=== PATIENT | male | born 1960 | race Caucasian/White ===

== ENCOUNTER 2021-06-27 11:36 | Emergency (ER) | payer BC, SELFPAY ==
[2021-06-27 11:37] VITALS: BP 169/92; PULSE 88; RESP 18; TEMP 36.6; O2SAT 98; BMI 32.5
[2021-06-27 11:52] LABS: Microscopic, Urine URINE MICROSCOPIC (MICROSCOPIC)
[2021-06-27 11:55] LABS: Appearance,Urine CLEAR (Clear); Bilirubin,Urine Negative (Negative); Blood, Urine TRACE-I (Negative); Color,Urine YELLOW (Yellow); Glucose,Urine (UA) Negative (Negative); Ketones,Urine Negative (Negative); Leukocyte Esterase,Urine Negative (Negative); Nitrate,Urine Negative (Negative); Protein,Urine 1+ (Negative); Specific Gravity, Urine 1.015 (1.005-1.030); Urobilinogen,Urine 0.2 EU/dl (0.2)
[2021-06-27 12:02] LABS: Basophils # 0.1 K/mm3 (0-0.2); Basophils % 1.7 % (0.1-2.0); Eosinophils # 0.1 K/mm3 (0.0-0.4); Eosinophils % 1.6 % (0.1-12.0); Hematocrit 48.3 % (42.0-52.0); Hemoglobin 15.5 g/dL (14.1-18.0); Lymphocytes # 1.7 K/mm3 (0.7-4.5); Lymphocytes % 32.3 % (10-50); Mean Corpuscular HGB Conc 32.2 g/dL (31.8-35.4); Mean Corpuscular Hemoglobin 31.2 pg (27.0-31.2); Mean Corpuscular Volume 96.9 fl (80-94); Mean Platelet Volume 8.5 fl (7.4-10.4); Monocytes # 0.3 K/mm3 (0.1-1.0); Monocytes % 4.9 % (1.7-9.3); Neutrophils # 3.2 K/mm3 (1.8-7.8); Neutrophils % 59.5 % (37.0-80.0); Platelet Count 229 K/mm3 (142-424); Red Blood Count 4.98 M/mm3 (4.60-6.20); Red Cell Distribution Width 14.1 % (11.5-17.5); White Blood Count 5.4 K/mm3 (4.8-10.8)
[2021-06-27 12:13] LABS: Bacteria,Urine Trace /lpf; RBC,Urine Occasional #/hpf (0-3); Squamous Epithelial Cell,Urine Occasional #/hpf (0-5)
[2021-06-27 12:13] LABS: Chloride 102 mmol/L (98-107); Potassium 4.1 mmoL/L (3.5-5.1); Sodium 136 mmol/L (136-145)
[2021-06-27 12:16] LABS: Alanine Aminotransferase 59 U/L (12-78); Albumin Level 4.6 g/dl (3.5-5.0); Albumin/Globulin Ratio 1.2 (1.1-1.8); Alkaline Phosphatase 78 U/L (38-126); Anion Gap 9.1 mEq/L (5-15); Aspartate Amino Transferase 61 U/L (17-59); Bilirubin,Total 0.5 mg/dl (0.2-1.3); Blood Urea Nitrogen 11 mg/dl (9-20); Carbon Dioxide 29 mmol/L (22.0-30.0); Creatinine Clearance Estimated 140 mL/min (50-200); Estimated Glomerular Filt Rate 99 ml/min (>60); GFR (African American) 120 ML/MIN (>60); Globulin 3.7 g/dL (1.3-3.2); Total Protein,Serum 8.3 g/dl (6.3-8.2)
[2021-06-27 12:17] LABS: Calcium 8.7 mg/dl (8.4-10.2); Glucose 148 mg/dl (74-100)
--- NOTE | 2021-06-27 13:12 | CT_ITS ---
FINAL REPORT CLINICAL HISTORY: R/O STONE left flank pain COMPARISON: March 27, 2016 FINDINGS: Axial CT images of the abdomen and pelvis were obtained without intravenous contrast. Coronal reformatted images were also obtained.This study was performed with techniques to keep radiation doses as low as reasonably achievable (ALARA). Individualized dose reduction techniques using automated exposure control or adjustment of mA and/or kV according to the patient's size were employed. Abdomen: The lung bases are clear. There is a 12 mm stone in the lower pole of the left kidney. There is moderate left hydronephrosis with a 16 mm stone in the UPJ. On the prior exam a smaller UPJ stone was present. There is a mass in the upper pole of the right kidney measuring 6 mm and was previously measured 4.5 cm. This cannot be accurately characterized without contrast but likely represents a cyst. The gallbladder surgically absent. The liver, spleen and pancreas have an unremarkable, unenhanced appearance. No adenopathy is seen. No inflammatory process is identified. There are moderate vascular calcifications. Pelvis: The appendix is not seen, consistent with patient history of appendectomy. Images of the pelvis reveal no evidence of ureteral dilation or ureteral stone.No mass or abnormal fluid collection is identified. There is mild urinary bladder wall thickening which is likely inflammatory. IMPRESSION: 12 mm stone in the lower pole of the left kidney. Moderate left hydronephrosis with a 16 mm stone in the UPJ. Right renal mass as described, cannot be accurately characterized but likely represents a cyst. Reviewed, Interpreted and Dictated by Amari Dietz III, MD Transcribed by Sunita Rodrigues Authenticated by Amari Dietz III, MD on 06/27/2021 02:28:47 PM [facility]
--- NOTE | 2021-06-27 13:24 | HMH.EDGENADL ---
ED Disposition Clinical Impression: Urolithiasis, UTI (urinary tract infection) Disposition: Home, Self-Care Condition on Discharge: Good Instructions: Kidney Stones -- Adult, DI for Acute Abdominal Pain Additional Instructions: Please follow up with primary care physician in 2-3 days for further management. You will also see urology at [facility] tomorrow to undergo lithotrypsty. Please take toradol and flomax for pain and comfort. 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) Pain Per Pt Transmission [facility]: [facility] Tamsulosin HCl [Flomax 0.4mg capsule] 0.4 mg PO HS #30 cap Transmission Status: [facility] Cefdinir [Omnicef 300mg Capsule] 300 mg PO BID #20 cap Transmission Status: [facility] Referrals: James Mancini [Primary Care Provider] - - Critical Care Critical Care Time: No Attestation: On 06/27/21, the high probability of a clinically significant, sudden or life threatening deterioration of the following system(s) required my full and direct attention, intervention and personal management. The time I documented below is in addition to time spent performing reported procedures but includes the following listed in this critical care notation. Medical Decision Making - Medical Records Medical records reviewed: Yes: I reviewed the patient's medical records. - Charan Inquiry Pt receiving controlled substance: No Vital Signs: 06/27/21 11:37 06/27/21 17:02 Temperature 98 F 98 F Temperature Source Oral Oral Pulse Rate 78 Pulse Rate [Radial] 88 Respiratory Rate 18 18 Blood Pressure 126/86 Blood Pressure [Right Arm] 169/92 H Blood Pressure Mean [Right Arm] 117 Blood Pressure Position Sitting Blood Pressure Position [Right Arm] Sitting 02 Sat by Pulse Oximetry 98 Oxygen Delivery Method Room Air Room Air - Lab Data Lab results reviewed: Yes: I reviewed the patient's lab results. Lab Results 06/27/21 11:44: Urine Color Yellow, Urine Appearance Clear, Urine pH 6.0, Ur Specific [place] 1.015, Urine Protein 1+, Urine Glucose (UA) Negative, Urine Ketones Negative, Urine Blood Trace-i, Urine Nitrate Negative, Urine Bilirubin Negative, Urine Urobilinogen 0.2, Ur Leukocyte Esterase Negative, Urine RBC Occasional, Urine WBC 3-5, Ur Squamous Epith Cells Occasional, Urine Bacteria Trace 06/27/21 11:45: WBC 5.4, RBC 4.98, Hgb 15.5, Hct 48.3, MCV 96.9 H, MCH 31.2, MCHC 32.2, RDW 14.1, Plt Count 229, MPV 8.5, Neut % (Auto) 59.5, Lymph % (Auto) 32.3, [place] % (Auto) 4.9, Eos % (Auto) 1.6, Baso % (Auto) 1.7, Neut # (Auto) 3.2, Lymph # (Auto) 1.7, [place] # (Auto) 0.3, Eos # (Auto) 0.1, Baso # (Auto) 0.1 06/27/21 11:45: Sodium 136, Potassium 4.1, Chloride 102, Carbon Dioxide 29, Anion Gap 9.1, BUN 11, Creatinine 0.80, Estimated Creat Clear 140, Estimated GFR 99, Est GFR ( Amer) 120, Glucose 148 H, Calcium 8.7, Total Bilirubin 0.5, AST 61 H, ALT 59, Alkaline Phosphatase 78, Total Protein 8.3 H, Albumin 4.6, Globulin 3.7 H, Albumin/Globulin Ratio 1.2 06/27/21 15:35: SARS-CoV-2 (PCR) Detected A, Influenza A Untype (PCR) Not detected, Influenza Type B (PCR) Not detected Result diagrams: 06/27/21 11:45 06/27/21 11:45 Orders (Tests/Meds): ED MEDICATIONS Discontinued Medications Generic Name Dose Route Start Last Admin Trade Name Freq PRN Reason Stop Dose Admin Hydromorphone HCl 1 mg 06/27/21 19:01 06/27/21 11:45 Hydromorphone 2mg/Ml Syringe IV 06/27/21 19:02 1 mg ONCE ONE Administration Hydromorphone HCl 0.5 mg 06/27/21 19:01 06/27/21 14:58 Hydromorphone 2mg/Ml Syringe IV 06/27/21 19:02 0.5 mg ONCE ONE Administration Hydromorphone HCl 0.5 mg 06/27/21 19:01 06/27/21 15:35 Hydromorphone 2mg/Ml Syringe IV 06/27/21 19:02 0.5 mg ONCE ONE Administration Lactated Ringer's 1,000 mls @ 999 mls/hr 06/27/21 12
--- NOTE | 2021-06-27 13:33 | PC.NURSE ---
Patient back from CT with lab support service tech
--- NOTE | 2021-06-27 14:44 | PC.NURSE ---
Consult to Dr. Leger
--- NOTE | 2021-06-27 15:19 | PC.NURSE ---
DR KAUR HERE TO SEE PT
--- NOTE | 2021-06-27 15:32 | HMH.CONS ---
*Admission Date: 06/27/21 *Reason for consult:: Left nephrolithiasis *History of present illness: Patient is a 61-year-old white male with a history of nephrolithiasis. He began having left renal colic last evening and presented to the emergency room today. CT scan shows a 16 mm stone at the left UPJ and a 12 mm stone in the left lower pole. He has had some associated nausea but no vomiting. He denies any fevers or chills. His white count is normal and his creatinine is normal. CT scan was reviewed. He has had previous lithotripsy and stents. [facility] History Medical History: Reports:: Hypertension, Kidney Stones Denies:: Diabetes Mellitus Type 1, Diabetes Mellitus Type 2 *Have you ever received a pneumonia vaccine?: Yes *Have you received a flu vaccine this season?: Yes Other Medical History: Reports: Sinus Problems Other Surgeries: Yes: Appendectomy, Cholecystectomy, Hernia Repair, Other - *Social History Smoking Status: Former smoker Tobacco Type: smokeless tobacco Alcohol Intake: never Alcohol Intake Frequency:: a few times a month *Occupational Status:: unemployed Housing: house *Travel in the last 8 weeks: None Family Hx:: No significant family history Review of Systems - Review of Systems Review of systems:: pertinent systems reviewed and negative unless documented below - *Genitourinary Denies difficulty urinating, Denies blood in urine, Denies urinary frequency, Denies urinary urgency - *Musculoskeletal Reports back pain Meds Home Medications Medication Instructions Recorded Confirmed Type bisoprolol 5 1 tab PO DAILY tab 10/23/17 03/10/21 History mg-hydrochlorothiazide 6.25 mg tablet ejituipyurif-Lm-yvgq-minerals 1 tab PO DAILY 10/23/17 03/10/21 History omega 8-hib-izh-fish oil 1,000 mg 1 cap PO DAILY 10/23/17 03/10/21 History (120 mg-180 mg) capsule ranitidine HCl 150 mg capsule 75 mg PO QHS cap 10/23/17 03/10/21 History Ketorolac Tromethamine [Toradol 10 mg PO Q4HP PRN #10 tab MDD 06/27/21 Rx 10mg tablet] 40mg/day Tamsulosin HCl [Flomax 0.4mg 0.4 mg PO HS #30 cap 06/27/21 Rx capsule] Allergies Allergy/AdvReac Type Severity Reaction Status Date / Time oxycodone [OXYCODONE] Allergy Intermediate HEADACHE Verified 03/10/21 12:49 acetaminophen [From Lortab] Allergy Mild Verified 03/10/21 12:49 hydrocodone [From Lortab] Allergy Mild Verified 03/10/21 12:49 Exam Vital signs and Labs for Last 24 Hours: Temp Pulse Resp BP Pulse Ox 98 F 88 18 169/92 H 98 06/27/21 11:37 06/27/21 11:37 06/27/21 11:37 06/27/21 11:37 06/27/21 11:37 Laboratory Results - last 24 hr 06/27/21 11:44: Urine Color Yellow, Urine Appearance Clear, Urine pH 6.0, Ur Specific [place] 1.015, Urine Protein 1+, Urine Glucose (UA) Negative, Urine Ketones Negative, Urine Blood Trace-i, Urine Nitrate Negative, Urine Bilirubin Negative, Urine Urobilinogen 0.2, Ur Leukocyte Esterase Negative, Urine RBC Occasional, Urine WBC 3-5, Ur Squamous Epith Cells Occasional, Urine Bacteria Trace 06/27/21 11:45: WBC 5.4, RBC 4.98, Hgb 15.5, Hct 48.3, MCV 96.9 H, MCH 31.2, MCHC 32.2, RDW 14.1, Plt Count 229, MPV 8.5, Neut % (Auto) 59.5, Lymph % (Auto) 32.3, [place] % (Auto) 4.9, Eos % (Auto) 1.6, Baso % (Auto) 1.7, Neut # (Auto) 3.2, Lymph # (Auto) 1.7, [place] # (Auto) 0.3, Eos # (Auto) 0.1, Baso # (Auto) 0.1 06/27/21 11:45: Sodium 136, Potassium 4.1, Chloride 102, Carbon Dioxide 29, Anion Gap 9.1, BUN 11, Creatinine 0.80, Estimated Creat Clear 140, Estimated GFR 99, Est GFR ( Amer) 120, Glucose 148 H, Calcium 8.7, Total Bilirubin 0.5, AST 61 H, ALT 59, Alkaline Phosphatase 78, Total Protein 8.3 H, Albumin 4.6, Globulin 3.7 H, Albumin/Globulin Ratio 1.2 I & O for Last 24 hours: Intake & Output 06/24/21 06/25/21 06/26/21 06/27/21 23:59 23:59 23:59 23:59 Weight 99.79 kg - Constitutional no acute distress - *Routine HEENT Exam Head: Present: normocephalic Eye: Present: EOMI, PERRL ENT: Pres
[2021-06-27 15:42] LABS: Influenza A, PCR Not Detected (NotDetected); Influenza B, PCR Not Detected (NotDetected)
[2021-06-27 16:12] LABS: Coronavirus 19, PCR Detected (NotDetected)
[2021-06-27 17:02] VITALS: BP 126/86; PULSE 78; RESP 18; TEMP 36.6; O2SAT 98
== END 2021-06-27 17:04 | disposition home or self-care (01) ==
PROVIDERS: Emergency Provider Student in an Organized Health Care Education/Training Program; PCP Family Medicine
DX: N20.9 Urinary calculus, unspecified (principal)
CPT/HCPCS: 74176; 80053; 81001; 85025; 96365; 96375; 96376; 99283; C9803; J2405; U0003; U0005

== ENCOUNTER 2021-06-28 08:40 | Day surgery (SDC) | payer BC, SELFPAY ==
[2021-06-28] VITALS (9 sets, daily range): BP systolic 147–175; BP diastolic 82–95; PULSE 79–94; RESP 14–18; TEMP 36.1–36.2; O2SAT 93–98; BMI 32.5
--- NOTE | 2021-06-28 14:18 | P.PN_ITS ---
[facility] Anesthesia Checklist - Patient Identification Patient Identification: Arm Band - Structural Data Admitted From: Home Planned Operative Procedure/s: eswl Consent for Planned Operative Procedure(s) Verified: Yes - NPO Status Verified Time NPO: 00:00 - Additional verifications Anesthesia Reactions: No Hx Blood Transfusions: No Blood Transfusion Reaction: No - Airway Assessment C-Spine Mobility Assessed: Yes TMJ Mobility Assessed: Yes Dentition: Good Dentition - Neurological Assessment Level of Consciousness: Awake Hx Seizures: No Numbness or tingling in extremities: No - Anesthesia Plan Anesthesia Risk discussed: Yes Anesthesia Plan: Verified ASA Class: II Anesthesia Type: General [facility] History I have reviewed the patient's past medical history: Yes Medical History: Reports:: Hypertension, Kidney Stones Denies:: Cancer, Diabetes Mellitus Type 1, Diabetes Mellitus Type 2, MRSA, Seizures *Have you ever received a pneumonia vaccine?: No *Have you received a flu vaccine this season?: Yes Other Medical History: Reports: Sinus Problems. Denies: Blood Transfusion Reaction Anesthesia experience/problems:: None Other Surgeries: Yes: Appendectomy, Cholecystectomy, Hernia Repair, Other Amputation: No - *Social History Last grade of school completed: GED Smoking Status: Former smoker Tobacco Type: smokeless tobacco Alcohol Intake: never Alcohol Intake Frequency:: a few times a month Substance Use Type: denies use *Occupational Status:: retired Housing: house *Travel in the last 8 weeks: None Family Hx:: No significant family history
--- NOTE | 2021-06-28 15:34 | HMH.ANESI ---
[facility] Anesthesia Record Part I Intake, IV Amount: 600 Estimated blood loss (mL): 0 Urine output (mL): 0 Blood Pressure: 157/94 SaO2: 93 Pulse Rate: 79 Respiratory Rate: 14 Temperature: 97 F Patient is:: Drowsy, Oral/Nasal airway Stable to PACU at:: 15:33
--- NOTE | 2021-06-28 15:35 | HMH.OPNOTE ---
Date of procedure: 06/28/21 Pre-op Diagnosis:: Left UPJ stone, 16 mm Post-op Diagnosis:: Same Procedure performed:: Cystoscopy with left ureteral stone manipulation, left stent and left ESWL Surgeon:: Bird Leger MD PRODUCT CONTROL AND LOGISTICS ANALYST:: Jacob Mansfield Anesthesia: LMA Estimated blood loss (mL): 0 Clinical Note:: 61-year-old white male seen in the emergency room yesterday with left renal colic. CT scan shows a 16 mm stone at the left UPJ. Operative findings:: 16 mm stone at the left UPJ Operative note:: Patient taken to the operating room after informed consent was obtained. He was placed on the operating table in the supine position and general anesthesia administered. Preoperative antibiotics and sequential compression devices placed. He was then placed into the dorsal lithotomy position and prepped and draped in the standard surgical fashion. 22 Mongolian cystoscope passed into the urethra and into the bladder without difficulty. The bladder was examined in a systematic fashion and no abnormalities were noted. The ureteral orifices in their normal anatomic position. A 5 Mongolian ureteral catheter passed into the left ureteral orifice and under fluoroscopy was passed proximally. The stone was able to be manipulated back into the renal pelvis with a moderate amount of difficulty. A guidewire then passed through the ureteral catheter and the ureteral cath removed. A 6 x 26 Mongolian stent was then passed over the guidewire and the guidewire removed. A good curl was noted proximally and distally. The string was left on for later removal. The patient then placed in the supine position and F2 the lithotripter focused onto the leading edge of the stone and 3000 shockwaves delivered to the stone at a maximum KV of 8. Stone appeared to fragment well. Patient tolerated the procedure well there are no complications. Condition: stable Disposition: PACU Specimens:: None Complications:: None
[2021-06-29 08:11] VITALS: BP 156/82; PULSE 90; TEMP 36.1
--- NOTE | 2021-06-29 08:11 | P.PN_ITS ---
[facility] Anesthesia Record Part II Discharge Time: 16:50 Destination: Surgical Day Care (OP Surgery) PACU nurse assessment reviewed?: Yes Patient Condition:: Good Anesthesia Complications:: None Swallowing reflex intact?: Yes Cyanosis?: No Blood Pressure: 156/82 Pulse Rate: 90 Temperature: 97 F Mental Status: Alert & Oriented Pain level:: 0 Nausea and/or vomitting:: None Intake, IV Amount: 0
== END 2021-06-28 16:50 | disposition home or self-care (01) ==
PROVIDERS: PCP Family Medicine; Visit Provider Urology
PROC: (CPT 52330; principal; 2021-06-28 14:45)
DX: N20.1 Calculus of ureter (principal); I10 Essential (primary) hypertension; Z88.6 Allergy status to analgesic agent
CPT/HCPCS: 52330; 50590; 96374; C2617

== ENCOUNTER 2021-06-29 12:44 | Emergency (ER) | payer BC, SELFPAY ==
[2021-06-29 12:46] VITALS: BP 183/114; PULSE 94; RESP 20; TEMP 36.8; O2SAT 98; BMI 32.5
[2021-06-29 15:07] LABS: Microscopic, Urine URINE MICROSCOPIC (MICROSCOPIC)
--- NOTE | 2021-06-29 15:20 | PC.NURSE ---
Notified Rad of CT
--- NOTE | 2021-06-29 15:29 | CT_ITS ---
FINAL REPORT CLINICAL HISTORY: stone protocol COMPARISON: June 27, 2021 FINDINGS: Axial CT images of the abdomen and pelvis were obtained without intravenous contrast. Coronal reformatted images were also obtained.This study was performed with techniques to keep radiation doses as low as reasonably achievable (ALARA). Individualized dose reduction techniques using automated exposure control or adjustment of mA and/or kV according to the patient's size were employed. Abdomen: There are several less than 5 mm nodules in the left lung base there are nonspecific. Postoperative changes are seen in proximal stomach. There has been cholecystectomy. There has been interval placement of a left ureteral stent. The stone at the left renal pelvis on the prior exam is not identified. There are multiple stones in left renal collecting system most numerous in the lower pole. Mild left hydronephrosis is partially improved. There is of left periureteric stranding that may represent edema/inflammation. There is a probable cyst in the posterior right kidney. The liver, spleen and pancreas have an unremarkable, unenhanced appearance. Vascular calcifications are present. There are scattered colonic diverticula. Pelvis: Images of the pelvis reveal no evidence of ureteral dilation or ureteral stone.No mass or abnormal fluid collection is identified. IMPRESSION: Interval placement of a left ureteral stent with non-visualization of the previous left renal pelvic stone but multiple stone fragments are present in the left renal collecting system. Partially improved left hydronephrosis with left periureteric stranding that may represent edema/inflammation. Reviewed, Interpreted and Dictated by Amari Dietz III, MD Transcribed by Familia Erickson Authenticated by Amari Dietz III, MD on 06/29/2021 04:23:56 PM [facility]
[2021-06-29 15:46] LABS: Basophils % 0.5 % (0.1-2.0); Eosinophils # 0.1 K/mm3 (0.0-0.4); Eosinophils % 1.1 % (0.1-12.0); Hematocrit 45.3 % (42.0-52.0); Hemoglobin 15.1 g/dL (14.1-18.0); Lymphocytes # 1.5 K/mm3 (0.7-4.5); Mean Corpuscular HGB Conc 33.3 g/dL (31.8-35.4); Mean Corpuscular Hemoglobin 31.7 pg (27.0-31.2); Mean Corpuscular Volume 95.2 fl (80-94); Mean Platelet Volume 8.1 fl (7.4-10.4); Monocytes # 0.3 K/mm3 (0.1-1.0); Monocytes % 5.4 % (1.7-9.3); Neutrophils # 3.4 K/mm3 (1.8-7.8); Neutrophils % 64.9 % (37.0-80.0); Platelet Count 221 K/mm3 (142-424); Red Blood Count 4.76 M/mm3 (4.60-6.20); Red Cell Distribution Width 13.9 % (11.5-17.5); White Blood Count 5.2 K/mm3 (4.8-10.8)
--- NOTE | 2021-06-29 15:46 | PC.NURSE ---
pt returned from CT at this time
[2021-06-29 15:57] LABS: Appearance,Urine CLEAR (Clear); Bilirubin,Urine Negative (Negative); Blood, Urine 3+ (Negative); Color,Urine YELLOW (Yellow); Glucose,Urine (UA) Negative (Negative); Ketones,Urine Negative (Negative); Leukocyte Esterase,Urine 2+ (Negative); Nitrate,Urine POSITIVE (Negative); PH,Urine 7.5 (5.0-8.5); Protein,Urine 2+ (Negative); Specific Gravity, Urine 1.025 (1.005-1.030)
[2021-06-29 15:57] LABS: Anion Gap 10.1 mEq/L (5-15); Blood Urea Nitrogen 11 mg/dl (9-20); Calcium 9.5 mg/dl (8.4-10.2); Carbon Dioxide 29 mmol/L (22.0-30.0); Chloride 107 mmol/L (98-107); Creatinine Clearance Estimated 160 mL/min (50-200); Estimated Glomerular Filt Rate 115 ml/min (>60); GFR (African American) 140 ML/MIN (>60); Glucose 91 mg/dl (74-100); Potassium 4.1 mmoL/L (3.5-5.1); Sodium 142 mmol/L (136-145)
[2021-06-29 16:27] LABS: RBC,Urine TNTC #/hpf (0-3); Squamous Epithelial Cell,Urine Occasional #/hpf (0-5)
[2021-06-29 16:28] LABS: Bacteria,Urine 2+ /lpf
--- NOTE | 2021-06-29 18:15 | PC.NURSE ---
DR NATASHA BELTRAN
--- NOTE | 2021-06-29 18:36 | PC.NURSE ---
DR KAUR PAGED AGAIN
--- NOTE | 2021-06-29 18:40 | PC.NURSE ---
speaking with Dr Leger at this time.
[2021-06-29 19:08] VITALS: BP 183/89; PULSE 87; RESP 18; TEMP 36.6; O2SAT 97
--- NOTE | 2021-06-29 19:14 | HMH.EDGENADL ---
ED Disposition Clinical Impression: Dysuria Disposition: Home, Self-Care Condition on Discharge: Good Instructions: DI for Urinary Tract Infection (UTI), DI for Urinary Tract Infection in Children Additional Instructions: Follow-up with Dr. Leger as scheduled and please take ibuprofen and Tylenol as instructed for pain control. Please return to the emergency department with any new or worsening symptoms including fever, worsening pain or any other new or concerning symptoms. Referrals: James Mancini [Primary Care Provider] - - Critical Care Critical Care Time: No Attestation: On 06/29/21, the high probability of a clinically significant, sudden or life threatening deterioration of the following system(s) required my full and direct attention, intervention and personal management. The time I documented below is in addition to time spent performing reported procedures but includes the following listed in this critical care notation. Medical Decision Making - Charan Inquiry Pt receiving controlled substance: No Vital Signs: 06/29/21 12:46 Temperature 98.3 F Temperature Source Oral Pulse Rate [Right Radial] 94 H Respiratory Rate 20 Blood Pressure [Right Arm] 183/114 H Blood Pressure Mean [Right Arm] 137 Blood Pressure Source [Right Arm] Automatic Cuff Blood Pressure Position [Right Arm] Sitting 02 Sat by Pulse Oximetry 98 Oxygen Delivery Method Room Air - Lab Data Lab Results 06/29/21 14:41: Urine Color Yellow, Urine Appearance Clear, Urine pH 7.5, Ur Specific [place] 1.025, Urine Protein 2+, Urine Glucose (UA) Negative, Urine Ketones Negative, Urine Blood 3+, Urine Nitrate Positive, Urine Bilirubin Negative, Urine Urobilinogen 1.0, Ur Leukocyte Esterase 2+ A, Urine RBC Tntc, Urine WBC 5-10, Ur Squamous Epith Cells Occasional, Urine Bacteria 2+ 06/29/21 15:30: WBC 5.2, RBC 4.76, Hgb 15.1, Hct 45.3, MCV 95.2 H, MCH 31.7 H, MCHC 33.3, RDW 13.9, Plt Count 221, MPV 8.1, Neut % (Auto) 64.9, Lymph % (Auto) 28.0, [place] % (Auto) 5.4, Eos % (Auto) 1.1, Baso % (Auto) 0.5, Neut # (Auto) 3.4, Lymph # (Auto) 1.5, [place] # (Auto) 0.3, Eos # (Auto) 0.1, Baso # (Auto) 0.0 06/29/21 15:30: Sodium 142, Potassium 4.1, Chloride 107, Carbon Dioxide 29, Anion Gap 10.1, BUN 11, Creatinine 0.70, Estimated Creat Clear 160, Estimated GFR 115, Est GFR ( Amer) 140, Glucose 91, Calcium 9.5 Result diagrams: 06/29/21 15:30 06/29/21 15:30 Orders (Tests/Meds): ORDERS Category Date Time Status Urine Culture Stat Micro 06/29/21 14:41 Received Medical Decision Narrative: 61-year-old male with history of lithotripsy and ureteral stent placed yesterday presents emergency department with abdominal discomfort, occasional small urinary blood clot passage, dysuria with urinalysis today showing bacteriuria with nitrate positivity with patient taking Azo likely responsible for this, with positive leukocyte esterase. metabolic panel and CBC are nonactionable, Dr. Leger with urology was called and stated that patient's symptoms and urinalysis results are consistent with expected postoperative pain and discomfort and recommend patient follow-up in the clinic. CT abdomen pelvis showed left interval placement of ureteral stent without comment of stent not in place. patient was hemodynamically stable and did not have a sheet metal mechanic abdomen and patient was able to be discharged with return precautions. General Adult HPI - General Chief complaint: Urogenital-Male Stated complaint: covid pos 06/20, pressure and difficulty urinating Time Seen by Provider: 06/29/21 14:41 Mode of Arrival: Ambulatory Limitations: No Limitations Description of Symptoms (Recalled from ER Triage Doc. by RN): Pt states that he was seen in the ED on Sunday and dx with a 16mm kidney stone. Advises that he had lithotripsy performed yesterday along with a stent placed. Denies difficulty urinating, but states that he has a continuous urge to urinate and pressure in his lower
[2021-06-29 19:19] VITALS: BP 187/83; PULSE 83; RESP 18; TEMP 36.8; O2SAT 99
== END 2021-06-29 19:22 | disposition home or self-care (01) ==
LOC: ER 13:08
PROVIDERS: Emergency Provider Student in an Organized Health Care Education/Training Program; PCP Family Medicine
DX: R30.0 Dysuria (principal); Z87.442 Personal history of urinary calculi; I10 Essential (primary) hypertension; Z87.891 Personal history of nicotine dependence
CPT/HCPCS: 36415; 74176; 80048; 81001; 85025; 87086; 99283

== ENCOUNTER → 2021-07-18 13:41 | Outpatient (CLI) | payer BC, SELFPAY ==
--- NOTE | 2021-07-18 13:47 | XR_ITS ---
FINAL REPORT CLINICAL HISTORY: kidney stone with carter placed COMPARISON: July 12, 2021 FINDINGS: SINGLE VIEW ABDOMEN A single view of the abdomen was obtained. There is a nonobstructive bowel gas pattern. There are no abnormally dilated loops of small bowel. There is a left ureteral stent. A stone or stones are seen the lower pole of the left kidney. There is a 4 mm radiodensity the left medial abdomen felt to represent anterior abdominal wall foreign body as seen as seen on CT from July 12, 2021. A questionable small stone is seen adjacent to the stent in the left pelvis. A phlebolith is noted in the left pelvis. There are postoperative changes in the right upper quadrant. IMPRESSION: Left ureteral stent with lower pole left renal stones questionable small stone adjacent to the stent in the left pelvis. Reviewed, Interpreted and Dictated by Amari Dietz III, MD Transcribed by Tabby Patino Authenticated by Amari Dietz III, MD on 07/18/2021 03:51:02 PM [facility]
== END ==
PROVIDERS: PCP Family Medicine; Visit Provider Urology
DX: N20.0 Calculus of kidney (principal)
CPT/HCPCS: 74018

== ENCOUNTER → 2021-08-10 09:15 | Outpatient (CLI) | payer BC, SELFPAY | PROVIDERS: PCP Family Medicine; Visit Provider Urology | DX: Z01.812 Encounter for preprocedural laboratory examination (principal); Z11.52 Encounter for screening for COVID-19; N20.0 Calculus of kidney | CPT/HCPCS: C9803; U0003; U0005 ==

== ENCOUNTER → 2021-08-29 10:53 | Outpatient (CLI) | payer BC, SELFPAY | PROVIDERS: PCP Family Medicine; Visit Provider Nurse Practitioner Family | DX: Z02.4 Encounter for examination for driving license (principal) ==

== ENCOUNTER 2022-04-09 09:19 | Emergency (ER) | payer BC, SELFPAY ==
[2022-04-09 10:55] VITALS: BP 149/84; PULSE 80; RESP 18; TEMP 37; O2SAT 99; BMI 34.0
--- NOTE | 2022-04-09 11:12 | EXP.UTC ---
Discharge Plan Disposition Patient Disposition: Home, Self-Care Condition: Good Prescriptions Prescriptions: New prednisone [prednisone] 20 mg tablet 20 mg PO BID 5 Days Qty: 10 0RF benzonatate 100 mg capsule 100 mg PO TID PRN (Reason: cough) Qty: 30 0RF amoxicillin-pot clavulanate 875-125 mg Tablet 1 tab PO Q12H Qty: 20 0RF fluticasone propionate [Flonase Allergy Relief] 50 mcg/actuation spray,suspension 1 spray intranasal DAILY Qty: 16 0RF Rx Instructions: administer into each nostril No Action omega 4-zwt-nox-fish oil [Fish Oil] 1,000 mg (120 mg-180 mg) capsule 1 cap PO DAILY ranitidine HCl 150 mg capsule 75 mg PO QHS hwvjpxyikzab-Xi-gfwu-minerals tablet 1 tab PO DAILY hydromorphone [Dilaudid] 2 mg tablet 2 mg PO Q4-6H PRN (Reason: pain) Qty: 7 0RF ketorolac 10 MG tablet 10 mg PO Q4HP MDD 40mg/day PRN (Reason: (Uniform Room Attendant Use Only) Pain Per Pt) Qty: 10 0RF Rx Instructions: Therapy initiated with IV/IM dose tamsulosin 0.4 MG capsule 0.4 mg PO HS cefdinir 300 MG capsule 300 mg PO BID Referrals Follow up/Referrals: James Mancini [Primary Care Provider] - See instructions Activity Restrictions/Add. Instructions Additional Instructions/Restrictions: *Monitor Temp, Over the counter Motrin or Tylenol as directed/as needed Tylenol every 4 hours and Motrin every 6 hours (as long as your family doctor has told you that you can take it) for fever or pain. and straight to ER if unable to lower temp less than 101.0 after medication given *Warm salt water gargles may help to soothe the throat *Throat Lozenges? *Warm fluids like tea with honey may help to soothe the throat??and help with nasal congestion? *Sleep elevated *Humidifier/Vaporizer *Flonase 2 sprays in each nostril daily but be aware that it may take 2-3 days before you notice improvement Follow up IMMEDIATELY for new or worsening symptoms or no Noticeable improvement over the next 48-72 hours. 911 for difficulty breathing or swallowing Clinical Impressions Clinical Impression: Otitis media, Sinusitis Stand Alone Forms Stand Alone Forms: Work/School Release Instructions Patient Instructions: DI for Sinusitis, Sinusitis, Middle Ear Infection, Amoxicillin and Clavulanic Acid Discharge ED Provider: Martha Dumont [facility] HPI General Stated complaint: Lt ear pain, cough, congestion, sinus drainage Time Seen by Provider: 04/09/22 11:12 History of Present Illness Provider Complaint: Patient states that he has been having pain in his left ear, sinus pain and pressure and feels like it is trying to move into his chest States that last night he had pain in his sinuses and felt like a pop in his left ear and has been having pain in the ear ever since State that pressure behind his eyes and cough States his ear was hurting worse so he came in to get it checked out Related Data Home Medications Medication Instructions Recorded Confirmed dpuxfruaujfz-Jf-rpft-minerals 1 tab PO DAILY Supplement 10/23/17 07/18/21 omega 7-sve-oln-fish oil 1,000 mg 1 cap PO DAILY Supplement 10/23/17 07/18/21 (120 mg-180 mg) capsule (Fish Oil) ranitidine HCl 150 mg capsule 75 mg PO QHS antacid 10/23/17 07/18/21 cefdinir 300 mg capsule 300 mg PO BID antibiotic 06/28/21 07/18/21 tamsulosin 0.4 mg capsule 0.4 mg PO HS prostate 06/28/21 07/18/21 Previous Rx's Medication Instructions Recorded ketorolac 10 mg tablet 10 mg PO Q4HP PRN (Uniform Room Attendant Use Only) 06/27/21 Pain Per Pt #10 tabs hydromorphone 2 mg tablet 2 mg PO Q4-6H PRN pain #7 tabs 07/18/21 (Dilaudid) amoxicillin 875 mg-potassium 1 tab PO Q12H #20 tabs 04/09/22 clavulanate 125 mg tablet benzonatate 100 mg capsule 100 mg PO TID PRN cough #30 caps 04/09/22 fluticasone propionate 50 1 spray intranasal DAILY #16 grams 04/09/22 mcg/actuation nasal spray,suspension (Flonase Allergy Relief) prednisone 20 mg tablet 20 mg PO BID 5
[2022-04-09 11:25] VITALS: BP 149/84; PULSE 80; RESP 18; TEMP 37; O2SAT 99
== END 2022-04-09 11:34 | disposition home or self-care (01) ==
PROVIDERS: Emergency Provider Nurse Practitioner; PCP Family Medicine
DX: H92.02 Otalgia, left ear (principal); R05.9 Cough, unspecified; R09.89 Other specified symptoms and signs involving the circulatory and respiratory systems; R51.9 Headache, unspecified; I10 Essential (primary) hypertension; Z79.1 Long term (current) use of non-steroidal anti-inflammatories (NSAID); Z79.51 Long term (current) use of inhaled steroids; Z79.52 Long term (current) use of systemic steroids; Z79.899 Other long term (current) drug therapy; Z88.5 Allergy status to narcotic agent; Z88.6 Allergy status to analgesic agent; Z88.8 Allergy status to other drugs, medicaments and biological substances; Z87.442 Personal history of urinary calculi; Z87.891 Personal history of nicotine dependence
CPT/HCPCS: 99213; G0463

== ENCOUNTER 2023-11-07 08:25 | Emergency (ER) | payer BC, SELFPAY ==
[2023-11-07 08:26] VITALS: BP 154/81; PULSE 77; RESP 18; TEMP 36.8; O2SAT 97; BMI 35.4
--- NOTE | 2023-11-07 08:39 | PC.NURSE ---
DR CERVANTES AT BEDSIDE
--- NOTE | 2023-11-07 08:39 | PC.NURSE ---
Dr. Byers at [facility] for pt eval
--- NOTE | 2023-11-07 08:49 | CT_ITS ---
FINAL REPORT TECHNIQUE: Axial images through the abdomen and pelvis were performed without contrast. This study was performed with techniques to keep radiation doses as low as reasonably achievable, (ALARA). Individualized dose reduction techniques using automated exposure control or adjustment of mA and/or kV according to the patient's size were employed. CLINICAL HISTORY: LLQ abd pain COMPARISON: 06/29/2021 FINDINGS: Abdomen: Lung bases are clear. There is fatty infiltration of the liver. The spleen, pancreas and adrenal glands have a normal CT appearance in their limited unenhanced state. Patient is status post cholecystectomy. Surgical changes seen along the proximal stomach. There are nonobstructing left renal stones, improved since prior. Largest stone is in the lower pole of the left kidney measures 12 mm. There is upper pole right renal cyst. No ureteral stones are present. Pelvis: The appendix is not identified but there are no secondary findings to suggest appendicitis. There is stranding surrounding the proximal sigmoid colon suspicious for mild diverticulitis. There is no evidence of abscess or obstruction. There is mild prostate enlargement. No distal ureteral stones are seen. Bladder is unremarkable. No fluid collection or adenopathy is seen. IMPRESSION: Stranding surrounding proximal sigmoid colon suspicious for mild diverticulitis. Left renal stones, improved since previous. Reviewed, Interpreted and Dictated by Anam Levine MD Transcribed by April Alcazar Authenticated and [facility]
--- NOTE | 2023-11-07 08:50 | HMH.EDGENADL ---
Discharge Plan Disposition Patient Disposition: Home, Self-Care Prescriptions Prescriptions: New amoxicillin-pot clavulanate 875-125 mg tablet 1 tab PO BID 10 Days Qty: 20 0RF ondansetron 4 mg tablet,disintegrating 4 mg PO Q6H PRN (Reason: nausea and vomiting) 5 Days Qty: 20 0RF No Action omega 6-qnq-tho-fish oil [Fish Oil] 1,000 mg (120 mg-180 mg) capsule 1 cap PO DAILY pmrlydtmqvjf-Vg-trtc-minerals tablet 1 tab PO DAILY bisoprolol fumarate 5 mg tablet 5 mg PO DAILY Patient Comments: TAKE 1 TABLET BY MOUTH ONCE DAILY Referrals Follow up/Referrals: James Mancini MD [Primary Care Provider] - See instructions Activity Restrictions/Add. Instructions Additional Instructions/Restrictions: You were diagnosed today with uncomplicated diverticulitis without any evidence of abscess or perforation. You may follow-up with our general surgeon or your primary care doctor please return with any high fevers or sudden worsening of abdominal pain. Of note there was no evidence of any obstructing kidney stone in fact your kidney stone burden has improved since previous CT scans. Clinical Impressions Clinical Impression: Diverticulitis Instructions Patient Instructions: DI for Acute Abdominal Pain Discharge ED Provider: Gumaro Byers General Adult HPI General Chief complaint: Abdominal Pain Stated complaint: Pain L front abd, hist of kidney stone Time Seen by Provider: 11/07/23 08:37 Mode of Arrival: Ambulatory Source of Information: Patient Limitations: No Limitations Description of Symptoms (Recalled from ER Triage Doc. by RN): PT REPORT LEFT SIDED LOWER ABDOMINAL PAIN THAT RADIATES TO GROIN AND TESTICLES. REPORTS HX OF KIDNEY STONES. DENIES FEVER. STARTED YESTERDAY History of Present Illness HPI narrative: Patient is a 63-year-old male present today with left lower quadrant abdominal pain. States he has a history of numerous kidney stones and has been septic multiple times in the past. His most severe presentation in 2021 had 2 hospitalizations first at [facility] where he was septic and improved and then went home and got sicker went to [facility] ultimately was intubated on a ventilator for 2 days. He is follow-up with Dr. Lantigua at [facility]. States that his pain today is little bit atypical from what his kidney stones been like in the past usually with back pain today it is focally in the left lower quadrant. Has a history of diverticulitis but has not had any recurrence of this in a long time. No blood in the stools. He did have some chills last night but currently feels well. No nausea pain is mild. With his history of sepsis he stated that he got scared last night with the chills and wanted to come get checked out. Related Data Home Medications Medication Instructions Recorded Confirmed jkcevwxmwxge-Fm-igro-minerals 1 tab PO DAILY Supplement 10/23/17 11/07/23 omega 2-qfb-fwn-fish oil 1,000 mg 1 cap PO DAILY Supplement 10/23/17 11/07/23 (120 mg-180 mg) capsule (Fish Oil) bisoprolol fumarate 5 mg tablet 5 mg PO DAILY 04/02/23 11/07/23 Previous Rx's Medication Instructions Recorded amoxicillin 875 mg-potassium 1 tab PO BID 10 days #20 tabs 11/07/23 clavulanate 125 mg tablet ondansetron 4 mg disintegrating 4 mg PO Q6H PRN nausea and 11/07/23 tablet vomiting 5 days #20 tabs Allergies Allergy/AdvReac Type Severity Reaction Status Date / Time oxycodone [OXYCODONE] Allergy Intermediate HEADACHE Verified 04/02/23 10:52 acetaminophen [From Lortab] Allergy Mild Verified 04/02/23 10:52 hydrocodone [From Lortab] Allergy Mild Verified 04/02/23 10:52 PFSH PFSH Disclaimer: The information contained in this section may have been updated after the patient was seen, as this information can be updated by other users. Medical History (Updated 11/07/23 @ 10:30 by Gumaro Byers MD) Acute tonsillitis Ear itch Hx of nephrolithotomy with removal of calculi Kidney stone Hypertension Surgical History History of hernia repair History of cholecystectomy History of appendectomy Social History Smoking Status: Former smoker tobacco type: smokeless tobacco alcohol intake: current alcohol intake frequency: a few times a month substance use type: denies use current occupational status: retired Travel in the last 8 weeks: None household members: spouse housing: house caffeine: Yes ROS Obtained: Yes All systems reviewed & no additional complaints except as documented Physical Exam General General appearance: alert and in no apparent distress Respiratory Respiratory exam: Present normal lung sounds bilaterally Cardiovascular Cardiovascular exam: Present regular rate and normal rhythm Abdominal Exam Abdominal exam: Present soft and tenderness (Left lower quadrant tenderness no rebound or guarding); Absent distention Back Exam Back exam: Absent CVA tenderness (R) or CVA tenderness (L) Neurological Exam Neurological exam: Present alert and oriented X3 Other Other exam information: 63-year-old presented today with left lower quadrant abdominal pain history of extensive stones which is what is primarily concerned about and is on the differential. Will get a noncontrasted CT scan for further evaluation. He is tender in the left lower quadrant which in my experience is not a typical presenting symptom could be inflammatory process such as colitis or diverticulitis as well. IV fluids pain medicine nausea medicine have been administered in addition to labs being ordered. Medical Decision Making Charan Inquiry Pt receiving controlled substance: No Vital Signs: 11/07/23 08:26 11/07/23 09:00 11/07/23 09:50 Temperature 98.3 F Temperature Source Oral Pulse Rate 72 69 Pulse Rate [Radial] 77 Respiratory Rate 18 Blood Pressure 128/70 122/72 Blood Pressure [Right Arm] 154/81 H Blood Pressure Mean [Right Arm] 105 Blood Pressure Source [Right Arm] Automatic Cuff Blood Pressure Position [Right Arm] Sitting 02 Sat by Pulse Oximetry 97 95 96 Oxygen Delivery Method Room Air Room Air Room Air Lab Data Lab results reviewed: Yes I reviewed the patient's lab results. Lab Results 11/07/23 08:30: Urine Color Yellow, Urine Appearance Clear, Urine pH 6.0, Ur Specific [place] <= 1.005, Urine Protein Negative, Urine Glucose (UA) Negative, Urine Ketones Negative, Urine Blood Negative, Urine Nitrate Negative, Urine Bilirubin Negative, Urine Urobilinogen 0.2, Ur Leukocyte Esterase 1+ A, Urine RBC None, Urine WBC 3-5, Ur Squamous Epith Cells Occasional, Urine Bacteria Trace 11/07/23 08:35: WBC 9.0, RBC 4.49 L, Hgb 14.4, Hct 43.4, MCV 96.7 H, MCH 32.0 H, MCHC 33.1, RDW 14.9, Plt Count 166, MPV 8.9, Neut % (Auto) 67.8, Lymph % (Auto) 25.3, [place] % (Auto) 5.4, Eos % (Auto) 0.8, Baso % (Auto) 0.7, Neut # (Auto) 6.1, Lymph # (Auto) 2.3, [place] # (Auto) 0.5, Eos # (Auto) 0.1, Baso # (Auto) 0.1, Sodium 137, Potassium 4.4, Chloride 104, Carbon Dioxide 23, Anion Gap 14.4, BUN 15, Creatinine 0.90, Estimated Creat Clear 119, Estimated GFR 86, Est GFR ( Amer) 104, Glucose 114 H, Calcium 9.6, Total Bilirubin 0.6, AST 34, ALT 36, Alkaline Phosphatase 79, Total Protein 7.9, Albumin 4.3, Globulin 3.6 H, Albumin/Globulin Ratio 1.2 11/07/23 08:35 11/07/23 08:35 Orders (Tests/Meds): ED MEDICATIONS Discontinued Medications Generic Name Dose Route Start Last Admin Trade Name Freq PRN Reason Stop Dose Admin Lactated Ringer's 1,000 mls @ 999 mls/hr 11/07/23 09:00 11/07/23 09:24 Lactated Ringer's 1000 Ml Bag IV 11/07/23 10:00 999 mls/hr .Q1H1M SYLVESTER Administration Ketorolac Tromethamine 15 mg 11/07/23 08:49 11/07/23 09:24 Ketorolac 30mg/Ml Vial IV 11/07/23 08:50 15 mg ONCE ONE Administration ORDERS Category Date Time Status CT abdomen pelvis wo con Stat Cat Scan 11/07/23 08:49 Completed CBC w/Auto Diff [Complete Blood Count Auto Diff] Stat Lab 11/07/23 08:35 Completed CMP [Comprehensive Metabolic Panel] Stat Lab 11/07/23 08:35 Completed UA [Urinalysis and Microscopic] Stat Lab 11/07/23 08:30 Completed Urine Culture Stat Micro 11/07/23 08:30 Received Medical Decision Narrative: 63-year-old presenting today with left lower quadrant abdominal pain initially he was very concerned about kidney stones with his history but he was quite tender making other pathology such as colitis or diverticulitis on the differential. CT scan was performed which I first interpreted which shows inflammatory changes around the sigmoid colon with associated diverticuli consistent with uncomplicated diverticulitis. Radiology read this as well no evidence of abscess or perforation no evidence of obstructing kidney stone. There is a renal stone within the kidney itself that is not symptomatic and has improved since previous CT scans. Of note patient does have some mild blood cells and leukocyte Estrace these are likely inflammatory changes associated with the localized diverticulitis but patient has no symptoms or signs of urinary tract infection will not treat for urine specific bacteria. Augmentin and Zofran have been prescribed patient advised to follow-up with the surgeon to return to the emergency department any significant worsening or high fevers and was discharged in improved stable condition. Critical Care Critical Care Time Critical Care Time: No
[2023-11-07 08:58] LABS: Microscopic, Urine URINE MICROSCOPIC (MICROSCOPIC)
[2023-11-07 09:00] VITALS: BP 128/70; PULSE 72; O2SAT 95
[2023-11-07 09:02] LABS: Appearance,Urine CLEAR (Clear); Bilirubin,Urine Negative (Negative); Blood, Urine Negative (Negative); Color,Urine YELLOW (Yellow); Glucose,Urine (UA) Negative (Negative); Ketones,Urine Negative (Negative); Leukocyte Esterase,Urine 1+ (Negative); Nitrate,Urine Negative (Negative); Protein,Urine Negative (Negative); Specific Gravity, Urine <= 1.005 (1.005-1.030); Urobilinogen,Urine 0.2 EU/dl (0.2)
[2023-11-07 09:02] LABS: Chloride 104 mmol/L (98-107); Potassium 4.4 mmoL/L (3.5-5.1); Sodium 137 mmol/L (136-145)
[2023-11-07 09:04] LABS: Alanine Aminotransferase 36 U/L (12-78); Aspartate Amino Transferase 34 U/L (17-59); Blood Urea Nitrogen 15 mg/dl (9-20); Creatinine Clearance Estimated 119 mL/min (50-200); Estimated Glomerular Filt Rate 86 ml/min (>60); GFR (African American) 104 ML/MIN (>60)
[2023-11-07 09:05] LABS: Albumin Level 4.3 g/dl (3.5-5.0); Albumin/Globulin Ratio 1.2 (1.1-1.8); Alkaline Phosphatase 79 U/L (38-126); Anion Gap 14.4 mEq/L (5-15); Bilirubin,Total 0.6 mg/dl (0.2-1.3); Calcium 9.6 mg/dl (8.4-10.2); Carbon Dioxide 23 mmol/L (22.0-30.0); Globulin 3.6 g/dL (1.3-3.2); Glucose 114 mg/dl (74-100); Total Protein,Serum 7.9 g/dl (6.3-8.2)
[2023-11-07 09:12] LABS: Basophils # 0.1 K/mm3 (0-0.2); Basophils % 0.7 % (0.1-2.0); Eosinophils # 0.1 K/mm3 (0.0-0.4); Eosinophils % 0.8 % (0.1-12.0); Hematocrit 43.4 % (42.0-52.0); Hemoglobin 14.4 g/dL (14.1-18.0); Lymphocytes # 2.3 K/mm3 (0.7-4.5); Lymphocytes % 25.3 % (10-50); Mean Corpuscular HGB Conc 33.1 g/dL (31.8-35.4); Mean Corpuscular Volume 96.7 fl (80-94); Mean Platelet Volume 8.9 fl (7.4-10.4); Monocytes # 0.5 K/mm3 (0.1-1.0); Monocytes % 5.4 % (1.7-9.3); Neutrophils # 6.1 K/mm3 (1.8-7.8); Neutrophils % 67.8 % (37.0-80.0); Platelet Count 166 K/mm3 (142-424); Red Blood Count 4.49 M/mm3 (4.60-6.20); Red Cell Distribution Width 14.9 % (11.5-17.5)
[2023-11-07 09:19] LABS: Bacteria,Urine Trace /lpf; Squamous Epithelial Cell,Urine Occasional #/hpf (0-5)
--- NOTE | 2023-11-07 09:22 | INFXCTL.NOTE ---
PT ASSISTED TO BR
[2023-11-07] MEDS: KETOROLAC 30MG/ML VIAL 15 MG IV (09:24)
[2023-11-07] MEDS: LACTATED RINGERS 1000ML 1,000 ML 999 ML IV (09:24)
[2023-11-07 09:50] VITALS: BP 122/72; PULSE 69; O2SAT 96
[2023-11-07 10:31] VITALS: BP 140/81; PULSE 69; RESP 18; TEMP 36.8; O2SAT 98
--- NOTE | 2023-11-10 05:37 | PC.NURSE ---
final cx of urine result no growth .
== END 2023-11-07 10:40 | disposition home or self-care (01) ==
PROVIDERS: Emergency Provider Student in an Organized Health Care Education/Training Program; PCP Family Medicine
DX: R10.32 Left lower quadrant pain (principal); K57.32 Diverticulitis of large intestine without perforation or abscess without bleeding; I10 Essential (primary) hypertension; Z87.442 Personal history of urinary calculi; Z87.891 Personal history of nicotine dependence
CPT/HCPCS: 74176; 80053; 81001; 85025; 87086; 96361; 96374; 99284; J1885; J7120

== ENCOUNTER 2025-04-14 12:57 | Outpatient (CLI) | payer BC, SELFPAY ==
--- NOTE | 2025-04-14 13:00 | XR_ITS ---
FINAL REPORT CLINICAL HISTORY: left shoulder pain nki, chronic pain COMPARISON: Not available. FINDINGS: 3 views of the left shoulder were obtained. There is no fracture or dislocation. There is mild degenerative joint disease at both the glenohumeral and acromioclavicular joints. Soft tissues are unremarkable. IMPRESSION: No acute osseous abnormality of the left shoulder. Degenerative joint disease. Authenticated and [facility]
--- NOTE | 2025-04-14 13:00 | XR_ITS ---
FINAL REPORT CLINICAL HISTORY: right shoulder pain nki, chronic pain COMPARISON: None available. FINDINGS: 3 views of the right shoulder were obtained. There is no fracture or dislocation. There is degenerative joint disease at both the glenohumeral and acromioclavicular joints. Soft tissues are unremarkable. IMPRESSION: No acute osseous abnormality of the right shoulder. Degenerative joint disease. Authenticated and [facility]
--- OUTSIDE RECORDS SUMMARY | 2025-04-14 13:01 | XMS_ITS | Encounter Summary ---
Author Organization Healthcare Address [address] [place] [address] Care Team Providers Care Lumber Yard Worker Name Role Phone James Mancini MD Primary Care Provider [phone] Encounter Details Date Type Department Care Team ([facility] st Contact Info) Description 07/25/2021 Lab Requisition [facility] [address] [place] [address] Ed Vasquez MD [address] [facility] [address] [place] [address] Encounter for general adult medical examination without abnormal findings Social History Tobacco Use Types Packs/Day Years Used Date Smoking Tobacco: Never Assessed Sex and Gender Information Value Date Recorded Sex Assigned at Male 08/01/2021 8:35 AM EDT Legal Sex Male 8:03 PM EDT Gender Identity Male 08/01/2021 8:35 AM EDT Sexual Orientation Straight 08/01/2021 8: 35 AM EDT COVID-19 Exposure Response Date Recorded In the last month, have you been in contact with someone who was confirmed or suspected to have Coronavirus / COVID-19? No / Unsure 07/28/2021 2:32 PM EDT documented as of this encounter Plan of Treatment Not on file documented as of this encounter Visit Diagnoses Diagnosis Encounter for general adult medical examination without abnormal findings documented in this encounter Additional Health Concerns Infection Onset Date Last Indicated Resolved Time MRSA 07/25/2021 07/25/2021 C. difficile Rule-Out 08/05/2021 08/05/20212021 9:05 AM EDT Gastrointestinal Rule-Out 08/05/2021 08/05/2021 9:37 AM EDT Norovirus 08/05/2021 08/05/2021 COVID-19 Rule-Out 08/16/2021 08/16/2021 08/16/2021 11:26 AM EDT documented as of this encounter Care Teams Lumber Yard Worker Relationship Specialty Start Date End Date James Mancini MD [address] [place] [address] PCP - General 07/18/21 documented as of this encounter
--- OUTSIDE RECORDS SUMMARY | 2025-04-14 13:01 | XMS_ITS | Clinical Summary ---
Author Organization [facility] Address [address] [place] [id number] Care Team Providers Care Wire Stitcher Machine Name Role Phone James Mancini MD Primary Care Provider [phone] Allergies Active Allergy Reactions Criticality Noted Date Comments Hydrocodone-Acetaminophen Itching Medium 07/25/2021 Meropenem Rash Low 07/25/2021 Oxycodone-Aspirin Itching Medium 12/03/2015 Oxycodone-Acetaminophen Itching Medium 07/25/2021 Piperacillin Sod-Tazobactam So Rash Low 07/25 Medications omega-3 (Fish Oil) 1000 MG capsule Take 2,000 mg by mouth 1 (one) time each day. Active Multiple Vitamin (multivitamin) tablet Take 1 tablet by mouth 1 (one) time each day. Active Glucosamine 500 MG capsule Take 1 capsule by mouth 1 (one) time each day. Active FAMOTIDINE PO Take by mouth. Active bisoprolol (Zebeta) 5 MG tablet 10/31/2021 Active Active Problems Problem Noted Date Diagnosed Date Tachycardia 08/15/2021 Urolithiasis 08/10/2021 Gastroesophageal reflux disease 08/10/2021 Severe obesity (BMI 35.0-39.9) with comorbidity 07/25/2021 Resolved Problems Problem Noted Date Diagnosed Date Resolved Date Dehydration 08/16/2021 08/17/2021 Sepsis 08/15/2021 08/17/2021 Arthritis 08/10/2021 02/01/2025 Septic shock 07/24/2021 07/28/2021 Immunizations Immunization Administration Dates Next Due Influenza, injectable, quadr ivalent, preservative free 03/01/2021,2020,03/17/2019 Moderna COVID-19 Vaccine (Re d Cap) 12+ years 08/25/2020,07/28/2020 Family History Medical History Relation Name Comments Anesthesia problems Neg Hx Social History Tobacco Use Types Packs/Day Years Used Date Smoking Tobacco: Former Cigarettes 2 20 1 980 - 2000 Smokeless Tobacco: Former Tobacco Cessation:Counseling Given: Not Answered Alcohol Use Standard Drinks/Week Comments Yes 0 (1 standard drink = 0.6 oz pur e alcohol) occassional PHQ-2 Answer Date Recorded Patient Health Questionnaire-2 Score 0 11/02/2022 PHQ-2A Answer Date Recorded Patient Health Questionnaire-2 Score 0 11/02/2022 Sex and Gender Information Value Date Recorded Sex Assigned at Male 08/01/2021 8:35 AM EDT Legal Sex Male 8:03 PM EDT Gender Identity Male 08/01/2021 8:35 AM EDT Sexual Orientation Straight 08/01/2021 8: 35 AM EDT Last Filed Vital Signs Vital Sign Reading Time Taken Comments Blood Pressure 133/72 11/02/2022 12:53 PM EDT Pulse 73 11/02/2022 12:53 PM EDT Temperature 36.8 C (98.2 F) 08/17/2021 1:10 PM EDT Respiratory Rate 18 08/17/2021 1:10 PM EDT Oxygen Saturation 95% 08/17/2021 1:10 PM EDT Inhaled Oxygen Concentration - - Weight 107 kg (235 lb 0.2 oz) 11/02/2022 12:53 P M EDT Height 175.3 cm (5' 9 ) 11/02/2022 12:53 PM EDT Body Mass Index 34.71 11/02/2022 12:53 PM EDT Plan of Treatment Health Maintenance Due Date Last Done Comments [facility]-Infant/Child/Adol SDOH Screenings 1962 [facility]- SDOH Screenings 02/18/1980 [facility]-Adult SDOH Screenings 02/18/1980 [facility]-DTaP,Tdap,and Td Vaccines (1 - Tdap) 1981 CT Colonography 2007 Colonoscopy 2007 FIT-DNA 2007 FIT 2007 FOBT 2007 Sigmoidoscopy 2007 [facility]-Colorectal Cancer Screening 2007 [facility]-Pneumococcal Vaccine: 50+ Years (1 of 1 - PCV) 02/18/2012 [facility]-Zoster Vaccines (1 of 2) 02/18/2012 [facility]-Depression Screening 11/03/2023 11/02/2022, 10/13 [facility]-NBXSB-19 Vaccine ( season) 2025 08/25/2020, 07/28/2020 [facility]-Influenza Vaccine (#1) 01/12/202503/21, 03/01/2021, 2020, Additional history exists [facility]-RSV Vaccine: 60+ Years or (1 - 1-dose 75+ series) 2037 [facility]-Hepatitis A Vaccines Aged Out 04/18/2018 No longer eligible based on patient's age to complete this topic [facility]-HIV Screening Completed 08/05/2021 [facility]-Hepatitis C Screening Completed 08/05/2021 [facility]-Obesity Intervention Completed 11/02/2022 HPV Vaccines Aged Out No longer eligi ble based on patient's age to complete this topic [facility]-HIB Vaccines Aged Out No longer e ligible based on patient's age to complete this topic [facility]-IPV Vaccines Aged Out No longer e ligible based on patient's age to complete this topic [facility]-Rotavirus Vaccines Aged Out No lo nger eligible based on patient's age to complete this topic Medical Devices Implanted Type Area Work Counselor Device Identifier Shelf Expiration Date Model / Serial / Lot Stent Ureteral Double Pigtail Pos 6fr 24cm - S. - [id number] Implanted:Qty: 1 on 07/25/2021 by José Lantigua MD at [facility] [id number] 04/14/2023 [id number] / . / Stent Ureteral Double Pigtail Pos 6fr 24cm - [id number] Implanted:Qty: 1 on 08/15/2021 by José Lantigua MD at [facility] [id number] 05/24/2023 [id number] / / [id number] Procedures Procedure Name Priority Date/Time Associated Diagnosis Comments HEPATITIS C ANTIBODY - ED W/REFLEX TO HCV QUANT PCR STAT 08/05/2021 6:14 AM EDT HIV 1/2 ANTIBODY/ANTIGEN SCREEN WITH REFLEX TO HIV I/II DIFFERENTIATION STAT 08/05/2021 6:14 AM EDT from Last 3 Months or Most Recently Relevant to Health Maintenance Results * HIV 1 & 2 Antibody/Antigen Screen (08/05/2021 6:14 AM EDT) HIV 1 & 2 Antibody/Anti gen Screen Nonreactive Nonreactive 08/05/2021 8:29 AM EDT [facility] Blood Venous blood specimen / Unknown Venipuncture / Unknown 08/05/2021 6:14 AM EDT 08/05/2021 6:26 AM EDT Pk Tillman MD LAB BLOOD ORDERABLES Final Result Performing Organization Address City/[facility]/ZIP Co de Phone Number [facility] [address] [place] [address] * [facility] Hepatitis C Antibody (08/05/2021 6:14 AM EDT) Hepatitis C Antibody Negative Negative 08/05/2021 8:19 AM EDT [facility] Blood Venous blood specimen / Unknown Venipuncture / Unknown 08/05/2021 6:14 AM EDT 08/05/2021 6:26 AM EDT Pk Tillman MD LAB BLOOD ORDERABLES Final Result [facility] [address] [place] [address] from Last 3 Months or Most Recently Relevant to Health Maintenance Additional Health Concerns Infection Onset Date Last Indicated MRSA 07/25/2021 07/25/2021 Norovirus 08/05/2021 08/05/2021 Insurance DEEPIKA Advance Directives * Full Code (Latest Code Status on File) Date Activated Date Inactivated Comments 08/15/2021 6:10 PM 08/17/2021 3:49 PM Question Answer Comments Patient has decision-making capacity? Yes * Full Code Date Activated Date Inactivated Comments 07/25/2021 9:46 AM 07/28/2021 5:33 PM Question Answer Comments Patient has decision-making capacity? Yes Care Teams Wire Stitcher Machine Relationship Specialty Start Date End Date James Mancini MD [facility] [address] [address] PCP - General 07/18/21
--- OUTSIDE RECORDS SUMMARY | 2025-04-14 13:02 | XMS_ITS | Encounter Summary ---
Author Organization [facility] yste Address [address] [place] [address] Care Team Providers Care Rag Collector Name Role Phone James Mancini MD Primary Care Provider [phone] Reason for Visit * Reason Comments Med Refill Encounter Details Date Type Department Care Team (Late st Contact Info) Description 03/12/2025 Refill [facility] [address] [facility] [place] [address] James Mancini MD [address] [facility] [address] Essential hypertension Social History Tobacco Use Types Packs/Day Years Used Date Smoking Tobacco: Former Cigarettes 2 25 0 05/15/1977 - 05/14/2002 Smokeless Tobacco: Former Quit: 04/16/2019 Alcohol Use Standard Drinks/Week Comments Yes 6 (1 standard drink = 0.6 oz pur e alcohol) PHQ-2 Answer Date Recorded Retired PHQ-9: Brief Depression Severity Measure Score 0 04/17/2023 PHQ-2 Answer Date Recorded Patient Health Questionnaire-2 Score 0 08/04/2024 Sex and Gender Information Value Date Recorded Sex Assigned at Male 07/28/2024 8:59 AM EDT Legal Sex Male 10:44 AM EDT Gender Identity Not on file Sexual Orientation Not on file documented as of this encounter Plan of Treatment Upcoming Encounters Date Type Department Care Team (Late st Contact Info) Description 08/14/2025 10:00 AM EDT Office Visit [facility] [address] [place] [phone] James Mancini MD [address] [place], [place] [id number] documented as of this encounter Visit Diagnoses Diagnosis Essential hypertension Unspecified essential hypertension documented in this encounter Care Teams Rag Collector Relationship Specialty Start Date End Date James Mancini MD [address] [place] [address] PCP - General 03/02/15 documented as of this encounter
--- OUTSIDE RECORDS SUMMARY | 2025-04-14 13:02 | XMS_ITS | Encounter Summary ---
Author Organization [facility] yste Address [address] [place] [address] Care Team Providers Care Home Based Assistant Name Role Phone James Mancini MD Primary Care Provider [phone] Encounter Details Date Type Department Care Team (Late st Contact Info) Description 02/11/2025 Results Follow-Up [facility] [address] [place] [address] James Mancini MD [address] [place] [address] Social History Tobacco Use Types Packs/Day Years [...] 08/14/2025 10:00 AM EDT Office Visit [facility] [address] [place] [phone] James Mancini MD [address] [place] [address] documented as of this encounter Visit Diagnoses Not on filedocumented in this encounter Care Teams Home Based Assistant Relationship Specialty Start Date End Date James Mancini MD [address] [place] [address] PCP - General 03/02/15 documented as of this encounter
--- OUTSIDE RECORDS SUMMARY | 2025-04-14 13:02 | XMS_ITS | Clinical Summary ---
Author Organization [facility] Address [address] [place] [address] Care Team Providers Care Industrial Safety And Health Manager Name Role Phone James Mancini MD Primary Care Provider [phone] Allergies Active Allergy Reactions Criticality Noted Date Comments Metformin GI Intolerance High 05/06/2024 Oxycodone-Acetaminophen Itching Low 12/03/2015 Medications [place]-3 Fatty Acids (FISH OIL) 1000 MG capsule capsule Take 1 capsule by mouth Daily. 10/10/19 14 Active Multiple Vitamins-Minerals (ONE-A-DAY MENS 50+ ADVANTAGE PO) Take by mouth. Active Glucosamine-Chondr oit-Vit C-Mn (GLUCOSAMINE 1500 COMPLEX PO) Take by mouth. Act sukhwinder sildenafil (REVATIO) 20 MG tabletIndications: Erectile dysfunction, unspecified erectile dysfunction type Take 2-5 tablets by mouth Daily As Needed (erection). 30 tablet 5 08/05/19 25 Active azelastine (ASTELIN) 0.1 % nasal sprayIndications:P ND (paroxysmal nocturnal dyspnea) Administer 2 sprays into the nostril(s) as directed by provider 2 (Two) Times a Day. Use in each nostril as directed 30 mL 12 08/21/19 25 Active montelukast (Singulair) 10 MG tabletIndications: Seasonal allergies Take 1 tablet by mouth Every Night. 90 tablet 3 08/21/19 25 Active omeprazole (priLOSEC) 20 MG capsuleIndications :Persistent cough Take 1 capsule by mouth Daily. 14 capsule 08/21/19 25 Active rosuvastatin (CRESTOR) 10 MG tabletIndications: Type 2 diabetes mellitus without complication, without long-term current use of insulin,Mixed hyperlipidemia Take 1 tablet by mouth once daily 90 tablet 01/22/20 25 Active Tirzepatide (MOUNJARO) 12.5 MG/0.5ML solution auto-injectorIndic ations:Type 2 diabetes mellitus without complication, without long-term current use of insulin Inject 0.5 mL under the skin into the appropriate area as directed 1 (One) Time Per Week. 2 mL 1 02/11/20 25 Active fluocinolone acetonide (DERMOTIC) 0.01 % oil otic oil 5 drops into both ears twice daily as needed. 20 mL 2 02/11/20 25 Active bisoprolol (ZEBeta) 5 MG tabletIndications: Essential hypertension Take 1 tablet by mouth once daily 90 tablet 03/12/20 25 Active Active Problems Problem Noted Date Diagnosed Date Microalbuminuria due to type 2 diabetes mellitus 08/04/2024 Gastroenteritis 08/13/2017 Essential hypertension 12/03/2015 Nausea 12/03/2015 Abdominal discomfort 12/03/2015 Gastroesophageal reflux disease 12/03/2015 Diarrhea 12/03/2015 Health care maintenance 12/03/2015 Encounters Date Type Department Care Team Description 03/12/2025 Refill [facility] [address] [phone] James Mancini MD Essential hypertension 02/11/2025 Results Follow-Up [facility] [address] [phone] James Mancini MD 02/10/2025 10:30 AM EDT Office Visit [facility] [address] [phone] James Mancini MD Seasonal allergic rhinitis due to pollen (Primary Dx); Type 2 diabetes mellitus without complication, without long-term current use of insulin; Essential hypertension; Mixed hyperlipidemia 02/10/2025 Telephone [facility] [address] [phone] James Mancini MD PHARMACY QUESTION 02/10/2025 Travel 01/21/2025 Refill [facility] [address] [facility] [place] [address] James Mancini MD Type 2 diabetes mellitus without complication, without long-term current use of insulin; Mixed hyperlipidemia from Last 3 Months Immunizations Immunization Administration Dates Next Due COVID-19 (MODERNA) 1st,2nd,3 rd Dose Monovalent 07/28/2020 Fluzone >6mos 05/06/2024 Fluzone (or Fluarix & Flulav al for VFC) >6mos 07/18/2023,03/21/2022,03/01/2021,2019,03/17/2019 Hepatitis A 04/18/2018 Tdap 08/04/2024 Family History Medical History Relation Name Comments Cancer Mother Merlyn [place] Relation Name Status Comments Mother Merlyn [place] Social History Tobacco Use Types Packs/Day Years Used Date Smoking Tobacco: Former Cigarettes 2 25 0 05/15/1977 - 05/14/2002 Smokeless Tobacco: Former Quit: 04/16/2019 Tobacco Cessation:Counseling Given: Not Answered Alcohol Use Standard Drinks/Week Comments Yes 6 [...] on file Sexual Orientation Not on file Last Filed Vital Signs Vital Sign Reading Time Taken Comments Blood Pressure 114/76 02/10/2025 10:18 AM EDT Pulse 84 02/10/2025 10:18 AM EDT Temperature 36.6 C (97.8 F) 02/10/2025 10:18 AM EDT Respiratory Rate 16 02/10/2025 10:18 AM EDT Oxygen Saturation 97% 02/10/2025 10:18 AM EDT Inhaled Oxygen Concentration - - Weight 97.1 kg (214 lb) 02/10/2025 10:18 AM EDT Height 175.3 cm (5' 9 ) 02/10/2025 10:18 AM EDT Body Mass Index 31.6 02/10/2025 10:18 AM EDT Plan of Treatment Upcoming Encounters Date Type Department Care Team (Late st Contact Info) Description 08/14/2025 10:00 AM EDT Office Visit [facility] [address] [place] [phone] James Mancini MD [address] [place] [address] Health Maintenance Due Date Last Done Comments DIABETIC FOOT EXAM 02/18/1972 Pneumococcal Vaccine 50+ (1 of 2 - PCV) 1981 COLOGUARD 2007 COLON CANCER SCREENING [address] COLONOGRAPHY 2007 FECAL OCCULT BLOOD TEST 2007 FIT Testing (1 year) 2007 COLONOSCOPY 03/15/2025 03/15/2015 DIABETIC EYE EXAM 04/06/2025 04/06/2024 (Patient-Reported (Performed Externally)) ANNUAL PHYSICAL 08/04/2025 08/04/2024 URINE MICROALBUMIN-CREATININE RATIO (uACR) 08/04/2025 08/04/2024 ZOSTER VACCINE (1 of 2) 08/04/2025 Post poned from 02/18/2012 (Pending event) COLORECTAL CANCER SCREENING 08/10/2025 Postponed from 2007 (Patient Refused) HEMOGLOBIN A1C 08/10/2025 02/10/2025, 07/13, 05/06/2024, Additional history exists INFLUENZA VACCINE 08/11/2025 05/06/2024, , 03/21/2022, Additional history exists Postponed from 12/12/2024 (Pending event) LIPID PANEL 02/10/2026 02/10/2025, 07/13, 05/06/2024, Additional history exists TDAP/TD VACCINES (2 - Td or Tdap) 08/04/2034 08/04/2024 HEPATITIS C SCREENING Completed 08/05/2021 , 04/18/2018 (Declined) Procedures Procedure Name Priority Date/Time Associated Diagnosis Comments CBC AND DIFFERENTIAL Routine 02/10/2025 11:06 AM EDT Essential hypertension HEMOGLOBIN A1C Routine 02/10/2025 11:06 AM EDT Type 2 diabetes mellitus without complication, without long-term current use of insulin LIPID PANEL W/ CHOL/HDL RATIO Routine 02/10/2025 11:06 AM EDT Type 2 diabetes mellitus without complication, without long-term current use of insulin Mixed hyperlipidemia COMPREHENSIVE METABOLIC PANEL Routine 02/10/2025 11:06 AM EDT Type 2 diabetes mellitus without complication, without long-term current use of insulin Essential hypertension Mixed hyperlipidemia POC ALBUMIN/CREATININE RATIO Routine 08/04/2024 10:08 AM EDT Type 2 diabetes mellitus without complication, without long-term current use of insulin SCANNED - INFLUENZA 03/17/2019 from Last 3 Months or Most Recently Relevant to Health Maintenance Results * (ABNORMAL) Lipid Panel With / Chol / HDL Ratio (02/10/2025 11:06 AM EDT) Total Cholesterol 97(L) 100 - 199 mg/dL [facility] Triglycerides 118 0 - 149 mg/dL [facility] HDL Cholesterol 31(L) >39 mg/dL [facility] VLDL Cholesterol Torin 22 5 - 40 mg/dL [facility] LDL Chol Calc (NIH) 44 0 - 99 mg/dL [facility] Chol/HDL Ratio 3.1 0.0 - 5.0 ratio [facility] Comment: T. Chol/HDL Ratio Men Women 1/2 Avg.Risk 3.4 3.3 Avg.Risk 5.0 4.4 2X Avg.Risk 9.6 7.1 3X Avg.Risk 23.4 11.0 Blood 02/10/2025 11:0 6 AM EDT 02/10/2025 Narrative [facility] (AMBULATORY) - 02/11/2025 8:12 AM EDT Performed at: 01 - [facility] [address] [place], [place] [id number] Certified Lactation Counselor: Yasir Guerra PhD, Phone: [phone] Patient Fasting: Y us James Mancini MD LAB BLOOD ORDERABLES Final Resu lt [facility] (AMBULATORY) [address] [place] [address], [facility] [address] [place] [address], * CBC & Differential (02/10/2025 11:06 AM EDT) WBC 6.3 3.4 - 10.8 x10E3/uL [facility] RBC 4.88 4.14 - 5.80 x10E6/uL [facility] Hemoglobin 15.3 13.0 - 17.7 g/dL [facility] Hematocrit 47.3 37.5 - 51.0 % [facility] MCV 97 79 - 97 fL [facility] MCH 31.4 26.6 - 33.0 pg [facility] MCHC 32.3 31.5 - 35.7 g/dL [facility] RDW 13.9 11.6 - 15.4 % [facility] Platelets 159 150 - 450 x10E3/uL [facility] Neutrophil Rel % 57 Not Estab. % [facility] Lymphocyte Rel % 35 Not Estab. % [facility] Monocyte Rel % 6 Not Estab. % [facility] Eosinophil Rel % 1 Not Estab. % [facility] Basophil Rel % 1 Not Estab. % [facility] Neutrophils Absolute 3.6 1.4 - 7.0 x10E3/uL [facility] Lymphocytes Absolute 2.2 0.7 - 3.1 x10E3/uL [facility] Monocytes Absolute 0.4 0.1 - 0.9 x10E3/uL [facility] Eosinophils Absolute 0.1 0.0 - 0.4 x10E3/uL [facility] Basophils Absolute 0.1 0.0 - 0.2 x10E3/uL [facility] Immature Granulocyte Rel % 0 Not Estab. % [facility] Immature Grans Absolute 0.0 0.0 - 0.1 x10E3/uL [facility] Blood 02/10/2025 11:0 6 AM EDT 02/10/2025 [facility] (AMBULATORY) - 02/11/2025 8:12 AM EDT Performed at: [address] [place] [address] [place] [id number] Certified Lactation Counselor: Yasir Guerra PhD, Phone: [phone] Patient Fasting: Y us James Mancini MD LAB BLOOD ORDERABLES Final Resu lt Performing Organization Address City/[facility]/ZIP Co de Phone Number [facility] [address] [place] [address], [facility] [address] [place] [address], * Hemoglobin A1c (02/10/2025 11:06 AM EDT) Pathologist [facility] Hemoglobin A1C 5.6 4.8 - 5.6 % [facility] Comment: Prediabetes: 5.7 - 6.4 Diabetes: >6.4 Glycemic control for adults with diabetes: <7.0 Blood 02/10/2025 11:0 6 AM EDT 02/10/2025 [facility] ([facility]) - 02/11/2025 8:12 AM EDT Performed at: [address] [place] [id number] Certified Lactation Counselor: Yasir Guerra PhD, Phone: [phone] Patient Fasting: Y us James Mancini MD LAB BLOOD ORDERABLES Final Resu lt Performing Organization Address City/[facility]/ZIP Co de Phone Number [facility] [address] [place] [address], [place] [phone] [facility] [address] [place] [address], [place] [phone] * Comprehensive Metabolic Panel (02/10/2025 11:06 AM EDT) Pathologist [facility] Glucose 85 70 - 99 mg/dL [facility] BUN 10 8 - 27 mg/dL [facility] Creatinine 0.82 0.76 - 1.27 mg/dL [facility] EGFR Result 99 >59 mL/min/1.7 3 [facility] BUN/Creatinine Ratio 12 10 - 24 [facility] Sodium 139 134 - 144 mmol/L [facility] Potassium 4.4 3.5 - 5.2 mmol/L [facility] Chloride 103 96 - 106 mmol/L [facility] Total CO2 21 20 - 29 mmol/L [facility] Calcium 9.5 8.6 - 10.2 mg/dL [facility] Total Protein 7.5 6.0 - 8.5 g/dL [facility] Albumin 4.7 3.9 - 4.9 g/dL [facility] Globulin 2.8 1.5 - 4.5 g/dL [facility] Total Bilirubin 0.4 0.0 - 1.2 mg/dL [facility] Alkaline Phosphatase 71 47 - 123 IU/L [facility] AST (SGOT) 22 0 - 40 IU/L [facility] ALT (SGPT) 21 0 - 44 IU/L [facility] Blood 02/10/2025 11:0 6 AM EDT 02/10/2025 Narrative [facility] - 02/11/2025 8:12 AM EDT Performed at: - [address] [id number] Certified Lactation Counselor: Yasir Guerra PhD, Phone: [phone] Patient Fasting: Y us James Mancini MD LAB BLOOD ORDERABLES Final Resu lt [facility] [address] [place] [address], [facility] [address] [place] [address], * (ABNORMAL) POC Albumin/Creatinine Ratio Urine (08/04/2024 10:08 AM EDT) POC ALBUMIN, URINE 150 mg/L Comment:High Abnormal POC CREATININE, URINE 50 mg/dL POC Urine Albumin Creatinine Ratio >300 <30 mg/g Lot Number [id number] Expiration Date 06/13/2025 Urine 08/04/2024 10:0 8 AM EDT James Mancini MD POINT OF CARE TEST ORDERABLES F inal Result * SCANNED - INFLUENZA (03/17/2019) James Mancini MD CHART REVIEW TABS Final Resu lt from Last 3 Months or Most Recently Relevant to Health Maintenance Insurance [employer] Care Teams Industrial Safety And Health Manager Relationship Specialty Start Date End Date James Mancini MD [address] [place] [address] [place] [address] PCP - General 03/02/15
== END 2025-04-14 23:59 | disposition home or self-care (01) ==
LOC: RAD 12:57
PROVIDERS: PCP Family Medicine; Visit Provider Student in an Organized Health Care Education/Training Program
DX: M19.011 Primary osteoarthritis, right shoulder (principal); M19.012 Primary osteoarthritis, left shoulder
CPT/HCPCS: 73030

== ENCOUNTER 2025-04-30 09:02 | Outpatient (CLI) | payer BC, SELFPAY ==
--- NOTE | 2025-04-30 09:05 | XR_ITS ---
FINAL REPORT CLINICAL HISTORY: left hip pain FINDINGS: An AP view of the pelvis and a frog leg view of the left hip were obtained. There is no prior exam for comparison. There is no acute fracture or dislocation. Joint space is preserved. Remaining osseous pelvis is without acute abnormality. Soft tissues are unremarkable. IMPRESSION: No acute osseous abnormality of the left hip. Reviewed, Interpreted and Dictated by Zohra Grayson MD Transcribed by Mary Chapa Authenticated and . [facility]
--- NOTE | 2025-04-30 09:05 | XR_ITS ---
FINAL REPORT CLINICAL HISTORY: right hip pain FINDINGS: An AP view of the pelvis and a frog leg view of the right hip were obtained. There is no prior exam for comparison. There is no acute fracture or dislocation. There is mild degenerative disease of the right hip. Os acetabuli is noted. Remaining osseous pelvis is without acute abnormality. Soft tissues are unremarkable. IMPRESSION: No acute osseous abnormality of the right hip. Mild degenerative disease. Reviewed, Interpreted and Dictated by Zohra Grayson MD Transcribed by Mary Chapa Authenticated and [facility]
--- OUTSIDE RECORDS SUMMARY | 2025-04-30 09:08 | XMS_ITS | Encounter Summary ---
Author Organization [facility] yste Address [address] [place] [address] Care Team Providers Care Mechanical Ordnance Assembler Name Role Phone James Mancini MD Primary Care Provider [phone] Reason for Visit * Reason Comments Med Refill Encounter Details Date Type Department Care Team (Late st Contact Info) Description 04/20/2025 Refill [facility] [address] [facility] [address] James Mancini MD [address] [facility] [place] [address] Type 2 diabetes mellitus without complication, without long-term current use of insulin; Mixed hyperlipidemia Social History Tobacco Use Types Packs/Day Years [...] Description 08/14/2025 10:00 AM EDT Office Visit [facility] [address] [place] [address] James Mancini MD [address] [place] [address] documented as of this encounter Visit Diagnoses Diagnosis Type 2 diabetes mellitus without complication, without long-term current use of insulin Mixed hyperlipidemia documented in this encounter Care Teams Mechanical Ordnance Assembler Relationship Specialty Start Date End Date James Mancini MD [address] [place] [address] PCP - General 03/02/15 documented as of this encounter
--- OUTSIDE RECORDS SUMMARY | 2025-04-30 09:08 | XMS_ITS | Encounter Summary ---
Author Organization [facility] Address [address] [place] [address] Care Team Providers Care Section 8 Property Manager Name Role Phone James Mancini MD Primary Care Provider [phone] Encounter Details Date Type Department Care Team (Late st Contact Info) Description 07/25/2021 Lab Requisition [facility] [address] [place] [address] Ed Vasquez MD [address] [place] [address] Encounter for general adult medical [...] PM EDT documented as of this encounter Functional Status documented as of this encounter Mental Status * Question Answer Entry Date Author Precautions Environmental surveillance 07/28/2021 7:0 0 AM EDT Maria Esther Galvez, RN * Question Answer Entry Date Author Backup Resp Rate (Set) 15 07/26/2021 8:07 AM EDT Edmond Dowd documented in this encounter Plan of Treatment Not on [...] documented as of this encounter Care Teams Section 8 Property Manager Relationship Specialty Start Date End Date James Mancini MD [address] [facility] [address] [place] [address] PCP - General 07/18/21 documented as of this encounter
--- OUTSIDE RECORDS SUMMARY | 2025-04-30 09:08 | XMS_ITS | Encounter Summary ---
Author Organization [facility] yste Address [address] [place] [address] Care Team Providers Care Engineering Faculty Name Role Phone James Mancini MD Primary Care Provider [phone] Encounter Details Date Type Department Care Team (Late st Contact Info) Description 02/11/2025 Results Follow-Up [facility] [address] [facility] [address] James Mancini MD 210 [place] [address] Social History Tobacco Use Types [...] Description 08/14/2025 10:00 AM EDT Office Visit [facility] [address] [place] [address] James Mancini MD [address] [place] [address] documented as of this encounter Visit Diagnoses Not on filedocumented in this encounter Care Teams Engineering Faculty Relationship Specialty Start Date End Date James Mancini MD [address] [place] [address] PCP - General 03/02/15 documented as of this encounter
--- OUTSIDE RECORDS SUMMARY | 2025-04-30 09:08 | XMS_ITS | Encounter Summary ---
Author Organization [facility] yste Address [address] [place] [address] Care Team Providers Care Car Sales Associate Name Role Phone James Mancini MD Primary Care Provider [phone] Encounter Details Date Type Department Care Team (Late st Contact Info) Description 04/14/2025 Results Follow-Up [facility] [address] [facility] [place] [address] James Mancini MD 210 [place] [address] Social History Tobacco Use Types [...] Description 08/14/2025 10:00 AM EDT Office Visit [facility] [address] [place] [address] James Mancini MD [address] [place] [address] documented as of this encounter Visit Diagnoses Not on filedocumented in this encounter Care Teams Car Sales Associate Relationship Specialty Start Date End Date James Mancini MD [address] [place] [address] PCP - General 03/02/15 documented as of this encounter
--- OUTSIDE RECORDS SUMMARY | 2025-04-30 09:08 | XMS_ITS | Encounter Summary ---
Author Organization [facility] yste Address [address] [place] [address] Care Team Providers Care Frame Wirer Name Role Phone James Mancini MD Primary Care Provider [phone] Reason for Visit * Reason Comments Med Refill Encounter Details Date Type Department Care Team (Late st Contact Info) Description 04/17/2025 Refill [facility] [address] [facility] [place] [address] James Mancini MD [address] [facility] [place] [address] Type 2 diabetes mellitus without complication, without long-term current use of insulin Social History Tobacco Use Types Packs/Day Years [...] Description 08/14/2025 10:00 AM EDT Office Visit [facility] [address] [place] [address] James Mancini MD [address] [place] [address] documented as of this encounter Visit Diagnoses Diagnosis Type 2 diabetes mellitus without complication, without long-term current use of insulin documented in this encounter Care Teams Frame Wirer Relationship Specialty Start Date End Date James Mancini MD [address] [place] [address] PCP - General 03/02/15 documented as of this encounter
--- OUTSIDE RECORDS SUMMARY | 2025-04-30 09:08 | XMS_ITS | Encounter Summary ---
Author Organization [facility] yste Address [address] [place] [address] Care Team Providers Care Tape Librarian Name Role Phone James Mancini MD Primary Care Provider [phone] Encounter Details Date Type Department Care Team (Late st Contact Info) Description 04/14/2025 Results Follow-Up [facility] [address] [facility] [place] [address] James Mancini MD 210 [place] [address] Social History Tobacco Use Types [...] Description 08/14/2025 10:00 AM EDT Office Visit [facility] [address] [place] [address] aJmes Mancini MD [address] [place] [address] documented as of this encounter Visit Diagnoses Not on filedocumented in this encounter Care Teams Tape Librarian Relationship Specialty Start Date End Date James Mancini MD [address] [place] [address] PCP - General 03/02/15 documented as of this encounter
--- OUTSIDE RECORDS SUMMARY | 2025-04-30 09:08 | XMS_ITS | Clinical Summary ---
Author [facility] Address [address] [place] [address] Care Team Providers Care Events Director Name Role Phone James Mancini MD Primary Care Provider [phone] Allergies Active Allergy Reactions Criticality Noted Date Comments Metformin GI Intolerance High 05/06/2024 Oxycodone-Acetaminophen Itching Low 12/03/2015 Medications [place]-3 Fatty Acids (FISH OIL) 1000 MG capsule capsule Take 1 capsule by mouth Daily. 014 Active Multiple Vitamins-Minerals (ONE-A-DAY MENS 50+ ADVANTAGE PO) Take by mouth. Active Glucosamine-Chond roit-Vit C-Mn (GLUCOSAMINE 1500 COMPLEX PO) Take by mouth. Act sukhwinder sildenafil (REVATIO) 20 MG tabletIndications :Erectile dysfunction, unspecified erectile dysfunction type Take 2-5 tablets by mouth Daily As Needed (erection). 30 tablet 5 025 Active azelastine (ASTELIN) 0.1 % nasal sprayIndications: PND (paroxysmal nocturnal dyspnea) Administer 2 sprays into the nostril(s) as directed by provider 2 (Two) Times a Day. Use in each nostril as directed 30 mL 12 025 Active montelukast (Singulair) 10 MG tabletIndications :Seasonal allergies Take 1 tablet by mouth Every Night. 90 tablet 3 025 Active omeprazole (priLOSEC) 20 MG capsuleIndication s:Persistent cough Take 1 capsule by mouth Daily. 14 capsule Active fluocinolone acetonide (DERMOTIC) 0.01 % oil otic oil 5 drops into both ears twice daily as needed. 20 mL 2 Active bisoprolol (ZEBeta) 5 MG tabletIndications :Essential hypertension Take 1 tablet by mouth once daily 90 tablet Active Mounjaro 12.5 MG/0.5ML solution auto-injectorIndi cations:Type 2 diabetes mellitus without complication, without long-term current use of insulin INJECT 1 PEN SUBCUTANEOUSLY ONCE A WEEK 4 mL 025 Active rosuvastatin (CRESTOR) 10 MG tabletIndications :Type 2 diabetes mellitus without complication, without long-term current use of insulin,Mixed hyperlipidemia Take 1 tablet by mouth once daily 90 tablet 025 Active rosuvastatin (CRESTOR) 10 MG tabletIndications :Type 2 diabetes mellitus without complication, without long-term current use of insulin,Mixed hyperlipidemia Take 1 tablet by mouth once daily 90 tablet 025 2024 Discontinued Tirzepatide (MOUNJARO) 12.5 MG/0.5ML solution auto-injectorIndi cations:Type 2 diabetes mellitus without complication, without long-term current use of insulin Inject 0.5 mL under the skin into the appropriate area as directed 1 (One) Time Per Week. 2 mL 1 025 2024 Discontinued Active Problems Problem Noted Date Diagnosed Date Microalbuminuria due to type 2 diabetes mellitus 08/04/2024 Gastroenteritis 08/13/2017 Essential hypertension 12/03/2015 Nausea 12/03/2015 Abdominal discomfort 12/03/2015 Gastroesophageal reflux disease 12/03/2015 Diarrhea 12/03/2015 Health care maintenance 12/03/2015 Encounters Date Type Department Care Team Description 04/20/2025 Refill [facility] [address] [place] [address] James Mancini MD Type 2 diabetes mellitus without complication, without long-term current use of insulin; Mixed hyperlipidemia 04/17/2025 Refill [facility] [address] [place] [address] James Mancini MD Type 2 diabetes mellitus without complication, without long-term current use of insulin 04/14/2025 Results Follow-Up [facility] [address] [place] [address] James Mancini MD 04/14/2025 Results Follow-Up [facility] [address] [place] [address] James Mancini MD 03/12/2025 Refill [facility] [address] [place] [address] James Mancini MD Essential hypertension 02/11/2025 Results Follow-Up [facility] [address] [place] [address] James Mancini MD 02/10/2025 10:30 AM EDT Office Visit [facility] [address] [place] [address] James Mancini MD Seasonal allergic rhinitis due to pollen (Primary Dx); Type 2 diabetes mellitus without complication, without long-term current use of insulin; Essential hypertension; Mixed hyperlipidemia 02/10/2025 Telephone [facility] [address] [place] [address] James Mancini MD [facility]ARM[facility] 02/10/2025 Travel from Last 3 Months Immunizations Immunization Administration Dates Next Due COVID-19 (MODERNA) 1st,2nd,3 rd Dose Monovalent 07/28/2020 Fluzone >6mos 05/06/2024 Fluzone (or Fluarix & Flulav al for VFC) >6mos 07/18/2023,03/21/2022,03/01/2021,2019,03/17/2019 Hepatitis A 04/18/2018 Tdap 08/04/2024 Family History Medical History Relation Name Comments Cancer Mother Merlyn Yañez Relation Name Status Comments Mother Merlyn Yañez Social History Tobacco Use Types Packs/Day Years [...] Description 08/14/2025 10:00 AM EDT Office Visit [facility] [address] [place] [address] James Mancini MD [address] [place] [address] Health Maintenance Due Date Last Done Comments [...] Procedure Name Priority Date/Time Associated Diagnosis Comments SCANNED - IMAGING 04/14/2025 SCANNED - IMAGING 04/14/2025 CBC AND DIFFERENTIAL Routine 02/10/2025 11:06 AM [...] Recently Relevant to Health Maintenance Results * IMAGING SCANNED (04/14/2025) Only the most recent of2 resultswithin the time period is included. Anatomical Region Laterality Modality Radiographic Jemma ging us James Mancini MD IMG DIAGNOSTIC IMAGING ORDERABL ES Final Result * (ABNORMAL) Lipid Panel With / Chol [...] AM EDT Performed at: 01 - [facility] [address] [id number] Saw Grinder: Yasir Guerra PhD, Phone: [phone] Patient Fasting: Y us James Mancini MD LAB BLOOD ORDERABLES Final Resu lt [facility] (AMBULATORY) [address] [place] [address], [facility] [address] [place] [address], * CBC & Differential (02/10/2025 11:06 AM EDT) [facility] WBC 6.3 3.4 - 10.8 x10E3/uL [facility] [...] 02/11/2025 8:12 AM EDT Performed at: - [address] [id number] Saw Grinder: Yasir Guerra PhD, Phone: [phone] Patient Fasting: Y us James Mancini MD LAB BLOOD ORDERABLES Final Resu lt Performing Organization Address City/[facility]/ZIP Co de Phone Number [facility] (AMBULATORY) [address] [place] [address], [place] [phone] [facility] [address] [place] [address], [place] [phone] * Hemoglobin A1c (02/10/2025 11:06 AM EDT) [facility] Hemoglobin A1C 5.6 4.8 - 5.6 % [facility] Comment: Prediabetes: 5.7 - 6.4 Diabetes: >6.4 Glycemic control for adults with diabetes: <7.0 Blood 02/10/2025 11:0 6 AM EDT 02/10/2025 Narrative [facility] (AMBULATORY) - 02/11/2025 8:12 AM EDT Performed at: - [facility] [address] [place], [place] [id number] Saw Grinder: Yasir Guerra PhD, Phone: [phone] Patient Fasting: Y us James Mancini MD LAB BLOOD ORDERABLES Final Resu lt Performing Organization Address City/[facility]/ZIP Co de Phone Number [facility] [address] [place] [address], [place] [phone] [facility] [address] [place] [address], [place] [phone] * Comprehensive Metabolic Panel (02/10/2025 11:06 AM EDT) Pathologist [facility] Glucose 85 70 - 99 mg/dL [facility] [...] 11:0 6 AM EDT 02/10/2025 Narrative [facility] (AMBULATORY) - 02/11/2025 8:12 AM EDT Performed at: [address] [place] [id number] Saw Grinder: Yasir Guerra PhD, Phone: [phone] Patient Fasting: Y us James Mancini MD LAB BLOOD ORDERABLES Final Resu lt [facility] [address] [place] [address], [facility] [address] [place] [address], * (ABNORMAL) POC Albumin/Creatinine Ratio Urine (08/04/2024 10:08 AM EDT) POC ALBUMIN, URINE 150 mg/L Comment:High Abnormal POC CREATININE, URINE 50 mg/dL POC Urine Albumin Creatinine Ratio >300 <30 mg/g Lot Number [id number] Expiration Date 06/13/2025 Urine 08/04/2024 10:0 8 AM EDT us James Mancini MD POINT OF CARE TEST ORDERABLES F inal Result * SCANNED - INFLUENZA (03/17/2019) us James Mancini MD CHART REVIEW TABS Final Resu lt from Last 3 Months or Most Recently Relevant to Health Maintenance Insurance [employer] Member Subscriber Plan / Payer (Ef fective 2022-Present) Name:Doroteo Venanc[address] Relation to Subscriber:Self Name:Venancio Sadler Payer ID:[id number] (NAIC) Type:Not on file Address: [facility] [address] [place] [id number] Care Teams Events Director Relationship Specialty Start Date End Date James Mancini MD [address] [place] [address] PCP - General 03/02/15
--- OUTSIDE RECORDS SUMMARY | 2025-04-30 09:08 | XMS_ITS | Clinical Summary ---
Author Organization [facility] Address [address] [place] [id number] Care Team Providers Care Used Car Salesperson Name Role Phone James Mancini MD Primary Care Provider [phone] Allergies Active Allergy Reactions Criticality Noted Date [...] Former Cigarettes 2 20 1 980 - 1999 Smokeless Tobacco: Former Tobacco Cessation:Counseling Given: Not [...] [facility]-DTaP,Tdap,and Td Vaccines (1 - Tdap) 1981 [facility]-Pneumococcal Vaccine: 50+ Years (1 of 2 - PCV) 1981 CT Colonography 2007 Colonoscopy 2007 FIT-DNA 2007 FIT 2007 FOBT 2007 Sigmoidoscopy 2007 [facility]-Colorectal Cancer Screening 2007 [facility]-Zoster Vaccines (1 of 2) 02/18/2012 [facility]-Depression Screening 11/03/2023 11/02/2022, 10/13 [id number] Vaccine ( season) 2025 08/25/2020, 07/28/2020 [facility]-Influenza Vaccine (#1) 01/12/202503/21, 03/01/2021, 2020, Additional history exists [facility]-RSV Vaccine: 60+ Years or (1 - 1-dose 75+ series) 2037 [facility]-Hepatitis A Vaccines Aged Out 04/18/2018 No longer eligible based on patient's age to complete this topic [facility]-HIV Screening Completed 08/05/2021 [facility]-Hepatitis C Screening Completed 08/05/2021 [facility]-Obesity Intervention Completed 11/02/2022 HPV Vaccines (No Doses Required) Completed [facility]-HIB Vaccines Aged Out No longer e ligible based on patient's age to complete this topic [facility]-IPV Vaccines Aged Out No longer e ligible based on patient's age to complete this topic [facility]-Rotavirus Vaccines Aged Out No lo nger eligible based on patient's age to complete this topic Medical Devices Implanted Type [employer] Member Device Identifier Shelf Expiration Date Model / Serial / Lot Stent Ureteral Double Pigtail Pos 6fr 24cm - S. - [id number] Implanted:Qty: 1 on 07/25/2021 by José Lantigua MD at [facility] [id number] 04/14/2023 [id number] / . / Stent Ureteral Double Pigtail Pos 6fr 24cm - [id number] Implanted:Qty: 1 on 08/15/2021 by José Lantigua MD at [facility] [id number] 05/24/2023 [id number] / / [id number] Procedures Procedure Name Priority Date/Time Associated Diagnosis [...] BLOOD ORDERABLES Final Result Performing Organization Address City/[facility] Co de Phone Number [facility] [address] [place] [address] * [place] Hepatitis C Antibody (08/05/2021 6:14 AM EDT) Hepatitis C Antibody Negative Negative 08/05/2021 8:19 AM EDT HEALTHCARE LAB Blood Venous blood specimen / Unknown Venipuncture / Unknown 08/05/2021 6:14 AM EDT 08/05/2021 6:26 AM EDT Pk Tillman MD LAB BLOOD ORDERABLES Final Result Performing Organization Address City/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 Yes * Full Code Date Activated Date Inactivated Comments 07/25/2021 9:46 AM 07/28/2021 5:33 PM Question Answer Comments Patient has decision-making capacity? Yes Care Teams Used Car Salesperson Relationship Specialty Start Date End Date James Mancini MD [address] [place] [address] PCP - General 07/18/21
--- OUTSIDE RECORDS SUMMARY | 2025-04-30 09:08 | XMS_ITS | Encounter Summary ---
Author Organization [facility] yste Address [address] [place] [address] Care Team Providers Care Supervisor Tunnel Heading Name Role Phone James Mancini MD Primary Care Provider [phone] Reason for Visit * Reason Comments Med Refill Encounter Details Date Type Department Care Team (Late st Contact Info) Description 03/12/2025 Refill [facility] [address] [facility] [place] [address] James Mancini MD [address] [facility] [place] [address] Essential hypertension Social History Tobacco [...] AM EDT Office Visit [facility] [address] [place] [address] James Mancini MD [address] [place], [place] [address] documented as of this encounter Visit Diagnoses Diagnosis Essential hypertension Unspecified essential hypertension documented in this encounter Care Teams Supervisor Tunnel Heading Relationship Specialty Start Date End Date James Mancini MD [address] [place] [address] PCP - General 03/02/15 documented as of this encounter
== END 2025-04-30 23:59 | disposition home or self-care (01) ==
LOC: RAD 09:03
PROVIDERS: PCP Family Medicine; Visit Provider Physician Assistant
DX: M16.11 Unilateral primary osteoarthritis, right hip (principal); M25.552 Pain in left hip
CPT/HCPCS: 73502